=== PATIENT | female | born 1950 | race Caucasian/White ===

== ENCOUNTER 2017-12-24 10:48 | Inpatient (IN) ==
--- NOTE | 2017-12-24 11:37 | ED ---
HPI General Chief Complaint: Shortness of Breath/Dyspnea Stated Complaint: SOB Time Seen by Provider: 12/24/17 11:05 Source: patient Mode of arrival: EMS Limitations: physical limitation History of Present Illness Patient through very choppy speech pattern provided some information, in particular to the patient has been driving from [place] to [place] over the last 3 days, states that her shortness of breath has been worsening over the last 3 days as well. MD Complaint: shortness of breath Onset (ago): day(s) (3) Severity: severe Consistency/Duration: progressively worsening Relieving factors: oxygen and bronchodilators Exacerbating factors: exertion Known history of: COPD Associated symptoms: wheezing Treatment prior to arrival: oxygen, bronchodilator and other (EMS gave patient breathing treatments as well as Solu-Medrol prior to arrival) Related Data Home oxygen amount: other (Patient was also placed on a nonrebreather to improve the initial pulse ox in the 80s to mid 90s after placed on a nonrebreather) Allergies Allergy/AdvReac Type Severity Reaction Status Date / Time azithromycin [From Zithromax] AdvReac Hotflash Verified 12/24/17 11:07 Review of Systems Except as stated in HPI: all other systems reviewed are negative PMFSH History History 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 Medical 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 Medical History Anxiety (Acute) COPD (chronic obstructive pulmonary disease) (Acute) Leg edema (Acute) Social History Social History Substance History: No History of Abuse Smoking Status: Former smoker How Often Do You Have a Drink Containing Alcohol: Monthly or less Recent Travel in [facility] within the Last 8 Weeks: Yes Recent Out of Country Travel within the Last 8 Weeks: No Immunization History Tetanus Immunization: Unsure Hx Influenza Vaccine This Season: Yes Exam Narrative Exam Narrative: GENERAL: Obese female in moderate to severe respiratory distress speaking only single word dyspnea SKIN: Warm and dry. HEAD: Atraumatic. Normocephalic. EYES: Pupils equal and round. No scleral icterus. No injection or drainage. ENT: No nasal bleeding or discharge. Mucous membranes pink and moist. NECK: Trachea midline. No JVD. CARDIOVASCULAR: Regular rate and rhythm. no rubs or gallops RESPIRATORY: Intercostal and supra sternal accessory muscle use. Bilateral wheezing, decreased tidal volume bilaterally. GASTROINTESTINAL: Abdomen soft, non-tender, nondistended. No rebound or guarding MUSCULOSKELETAL: Extremities without clubbing, cyanosis, or edema. No obvious deformities. NEUROLOGICAL: Awake and alert. No obvious cranial nerve deficits. Motor grossly within normal limits. Five out of 5 muscle strength in the arms and legs. Normal speech. PSYCHIATRIC: Appropriate mood and affect; insight and judgment normal. Course Initial Documented Vital Signs Temperature 99 F 12/24/17 10:55 Pulse Rate 123 H 12/24/17 10:55 Respiratory Rate 51 H 12/24/17 10:55 Blood Pressure 181/109 H 12/24/17 10:55 Pulse Oximetry 96 12/24/17 10:55 Last Documented Vital Signs Temperature 99 F 12/24/17 10:55 Pulse Rate 123 H 12/24/17 11:41 Respiratory Rate 51 H 12/24/17 10:55 Blood Pressure 154/102 H 12/24/17 11:41 Pulse Oximetry 93 L 12/24/17 11:15 Critical Care Time Critical Care Time: Yes Total Critical Care Time: 60 Attestation: Aggregate critical care time was 60 minutes. Time to perform other separately billable procedures was not included in the critical care time. My time did not include minutes spent treating any other patients simultaneously or on activities that did not directly contribute to the patient's treatment. The services I provided to this patient were to treat and/or prevent clinically significant deterioration that could result in: [Respiratory failure, intubation, permanent disability or ] I provided critical care services requiring my management, as noted below: Chart data review, documentation time, medication orders and management, vital sign assessments/reviewing monitor data, ordering and reviewing lab tests, ordering and interpreting/reviewing x-rays and diagnostic studies, care of the patient and discussion of the patient with the admitting physicians. Medical Decision Making MDM Narrative Medical decision making narrative: CBC shows leukocytosis of 44,000, with 87% neutrophilia, no anemia no abnormal platelet count Coagulation profile is within normal limits ABG immediately after placing the patient on BiPAP essentially shows pH of 7.44 PaO2 of 71 PaCO2 of 33 and this was on BiPAP 12/+5/50% Patient has stage IV renal failure with a GFR of 15 creatinine of 3.06, normal beta natruretic peptide, normal liver function, normal potassium. Chest x-ray shows left basilar density as per radiology report VQ scan shows low probability pulmonary embolism Chest CT shows consolidation in the medial left lower lung as well as mildly prominent middle mediastinal lymph nodes with this combined findings my concern is of possible primary tuberculosis, so the patient should be tested additionally to rule out TB. The patient will be placed on a negative pressure room Differential Diagnosis Differential Diagnosis: Pneumonia versus pneumothorax versus pulmonary embolus versus COPD exacerbation versus hypoxemic respiratory failure Lab Data Lab results reviewed: Yes I reviewed the patient's lab results. Result diagrams: 12/24/17 11:18 12/24/17 11:18 Lab Results 12/24/17 12/24/17 12/24/17 Range/Units 11:18 11:18 11:18 WBC 44.1 H (4.0-11.0) th/mm3 RBC 5.81 H (4.00-5.30) mil/mm3 Hgb 15.9 H (11.6-15.3) gm/dL Hct 48.5 H (35.0-46.0) % MCV 83.4 (80.0-100.0) fL MCH 27.4 (27.0-34.0) pg MCHC 32.8 (32.0-36.0) % RDW 16.3 (11.6-17.2) % Plt Count 441 (150-450) th/mm3 MPV 9.7 (7.0-11.0) fL Prelim Diff (Auto) Slide review pending Neut % (Auto) 86.9 H (16.0-70.0) % Lymph % (Auto) 4.9 L (9.0-44.0) % [place] % (Auto) 7.7 (0.0-8.0) % Eos % (Auto) 0.3 (0.0-4.0) % Baso % (Auto) 0.2 (0.0-2.0) % Neut # (Auto) 38.4 H (1.8-7.7) th/mm3 Lymph # (Auto) 2.1 (1.0-4.8) th/mm3 [place] # (Auto) 3.4 H (0.0-0.9) th/mm3 Eos # (Auto) 0.1 (0.0-0.4) th/mm3 Baso # (Auto) 0.1 (0.0-0.2) th/mm3 WBC Differential Manual diff final Seg Neuts % (Manual) 78 H (16-70) % Band Neuts % (Manual) 14 H (0-6) % Lymphocytes % (Manual) 2 L (9-44) % Monocytes % (Manual) 4 (0-8) % Eosinophils % (Manual) 1 (0-4) % Metamyelocytes % (Man) 1 (0-1) % Abs Neuts (Manual) 41.0 H (1.8-7.7) th/mm3 Differential Comment . Platelet Estimate Normal (Normal) Platelet Morphology Normal (Normal) RBC Morphology Normal (Normal) PT 11.4 (9.8-11.6) sec INR 1.1 Ratio APTT 29.4 (24.3-30.1) sec Puncture Site Patient Temperature O2 Saturation (90-100) % ABG pH (7.380-7.420) ABG pCO2 (38-42) mmHg ABG pO2 (61-120) mmHg ABG HCO3 (22-26) mmol/L ABG O2 Content (12.0-20.0) Vol % ABG Base Excess (-2-2) mmol/L ABG Methemoglobin (0-2) % Chet Test Hemoglobin (12.0-16.0) G/DL Carboxyhemoglobin (0-4) % O2 Delivery Device Vent Setting Inspired O2 % Critical Value Sodium 136 (136-145) meq/L Potassium 3.6 (3.5-5.1) meq/L Chloride 99 (98-107) meq/L Carbon Dioxide 25.1 (21.0-32.0) meq/L Anion Gap 12 (5-15) meq/L BUN 51 H (7-18) mg/dL Creatinine 3.06 H (0.50-1.00) mg/dL Estimated GFR 15 L (>89) mL/min Random Glucose 98 (74-106) mg/dL Calcium 9.2 (8.5-10.1) mg/dL Total Bilirubin 1.4 H (0.2-1.0) mg/dL AST 41 H (15-37) U/L ALT 35 (10-53) U/L Alkaline Phosphatase 194 H (45-117) U/L Total Creatine Kinase 76 (26-192) U/L Troponin I Less than 0.02 L (0.02-0.05) ng/mL B-Natriuretic Peptide (0-100) pg/mL Total Protein 8.2 (6.4-8.2) g/dL Albumin 2.5 L (3.4-5.0) g/dL 12/24/17 12/24/17 Range/Units 11:18 11:29 WBC (4.0-11.0) th/mm3 RBC (4.00-5.30) mil/mm3 Hgb (11.6-15.3) gm/dL Hct (35.0-46.0) % MCV (80.0-100.0) fL MCH (27.0-34.0) pg MCHC (32.0-36.0) % RDW (11.6-17.2) % Plt Count (150-450) th/mm3 MPV (7.0-11.0) fL Prelim Diff (Auto) Neut % (Auto) (16.0-70.0) % Lymph % (Auto) (9.0-44.0) % [place] % (Auto) (0.0-8.0) % Eos % (Auto) (0.0-4.0) % Baso % (Auto) (0.0-2.0) % Neut # (Auto) (1.8-7.7) th/mm3 Lymph # (Auto) (1.0-4.8) th/mm3 [place] # (Auto) (0.0-0.9) th/mm3 Eos # (Auto) (0.0-0.4) th/mm3 Baso # (Auto) (0.0-0.2) th/mm3 WBC Differential Seg Neuts % (Manual) (16-70) % Band Neuts % (Manual) (0-6) % Lymphocytes % (Manual) (9-44) % Monocytes % (Manual) (0-8) % Eosinophils % (Manual) (0-4) % Metamyelocytes % (Man) (0-1) % Abs Neuts (Manual) (1.8-7.7) th/mm3 Differential Comment Platelet Estimate (Normal) Platelet Morphology (Normal) RBC Morphology (Normal) PT (9.8-11.6) sec INR Ratio APTT (24.3-30.1) sec Puncture Site Right radial Patient Temperature 98.6 O2 Saturation 92 (90-100) % ABG pH 7.44 H (7.380-7.420) ABG pCO2 33 L (38-42) mmHg ABG pO2 71 (61-120) mmHg ABG HCO3 22 (22-26) mmol/L ABG O2 Content 21.3 H (12.0-20.0) Vol % ABG Base Excess -1.8 (-2-2) mmol/L ABG Methemoglobin 0.5 (0-2) % Chet Test Present Hemoglobin 16.4 H (12.0-16.0) G/DL Carboxyhemoglobin 1.3 (0-4) % O2 Delivery Device Bipap Vent Setting 12/+5/50% Inspired O2 50 % Critical Value No Sodium (136-145) meq/L Potassium (3.5-5.1) meq/L Chloride (98-107) meq/L Carbon Dioxide (21.0-32.0) meq/L Anion Gap (5-15) meq/L BUN (7-18) mg/dL Creatinine (0.50-1.00) mg/dL Estimated GFR (>89) mL/min Random Glucose (74-106) mg/dL Calcium (8.5-10.1) mg/dL Total Bilirubin (0.2-1.0) mg/dL AST (15-37) U/L ALT (10-53) U/L Alkaline Phosphatase (45-117) U/L Total Creatine Kinase (26-192) U/L Troponin I (0.02-0.05) ng/mL B-Natriuretic Peptide 10 (0-100) pg/mL Total Protein (6.4-8.2) g/dL Albumin (3.4-5.0) g/dL Imaging Data Radiologist's impression: Chest X-Ray 12/24/17 11:10 CONCLUSION: Left basilar density could be atelectasis or infiltrate Chest CT 12/24/17 12:24 CONCLUSION: 1. Segmental consolidation medial left lower lung. 2. Mildly prominent middle mediastinal lymph nodes. 3. Upper lobe emphysema. 4. 2 cm left thyroid nodule. Pulmonary Perfusion Imaging 12/24/17 12:25 CONCLUSION: 1. Low probability pulmonary embolism. 2. Ventilatory abnormalities including central deposition and upper lobe emphysema. ECG Data EKG Prior to Arrival: No Attestation: I personally reviewed and interpreted this ECG as follows: Prior ECG tracings: not available for review Interpretation: Sinus tachycardia with 125 bpm, PVCs, no evidence of any ST elevation UT, there is some baseline motion artifact due to the patient's distress Discharge Plan Discharge Disposition Patient Disposition: 30 Still Patient Discharge Condition Condition: Fair Discharge Details Diagnosis: Acute exacerbation of chronic obstructive airways disease, Acute hypoxemic respiratory failure, Renal failure Physicians Team ED Provider: Marty Moon Primary Care Provider: NON STAFF,PROVIDER Attending Provider: Joe Alejandre Status ED Status: Admitted Patient
[2017-12-24 11:38] LABS: Baso # (Auto) 0.1 th/mm3 (0.0-0.2); Baso % (Auto) 0.2 % (0.0-2.0); Eos # (Auto) 0.1 th/mm3 (0.0-0.4); Eos % (Auto) 0.3 % (0.0-4.0); Hematocrit 48.5 % (35.0-46.0); Hemoglobin 15.9 gm/dL (11.6-15.3); Lymph # (Auto) 2.1 th/mm3 (1.0-4.8); Lymph % (Auto) 4.9 % (9.0-44.0); Mean Corpuscular HGB Conc 32.8 % (32.0-36.0); Mean Corpuscular Hemoglobin 27.4 pg (27.0-34.0); Mean Corpuscular Volume 83.4 fL (80.0-100.0); Mean Platelet Volume 9.7 fL (7.0-11.0); Mono # (Auto) 3.4 th/mm3 (0.0-0.9); Mono % (Auto) 7.7 % (0.0-8.0); Neut # (Auto) 38.4 th/mm3 (1.8-7.7); Neut % (Auto) 86.9 % (16.0-70.0); Platelet Count 441 th/mm3 (150-450); Red Blood Count 5.81 mil/mm3 (4.00-5.30); Red Cell Distribution Width 16.3 % (11.6-17.2); White Blood Count 44.1 th/mm3 (4.0-11.0)
--- NOTE | 2017-12-24 11:39 | XR ---
EXAM DATE: 12/24/2017 11:35 AM EDT AGE/SEX: 67 years / Female INDICATIONS: Shortness of breath. CLINICAL DATA: This is the patient's initial encounter. Patient reports that signs and symptoms have been present for 1 day and indicates a pain score of Nonresponsive. MEDICAL/SURGICAL HISTORY: Non-responsive. Patient too short of breath to get adequate history. On vent. Non-responsive. COMPARISON: No prior exams available for comparison. FINDINGS: A single AP view of the chest demonstrates left basilar density. Right lung clear. Heart normal in si ze The cardiomediastinal contours are unremarkable. Osseous structures are intact. CONCLUSION: Left basilar density could be atelectasis or infiltrate Electronically signed by: Roby Chiu MD 12/24/2017 11:38 AM EDT
[2017-12-24 11:45] LABS: ABG Base Excess -1.8 mmol/L (-2-2); ABG PCO2 33 mmHg (38-42); ABG PO2 71 mmHg (61-120)
[2017-12-24 11:51] LABS: Activated Partial Thrombo Time 29.4 sec (24.3-30.1); INR 1.1 Ratio; Prothrombin Time 11.4 sec (9.8-11.6)
[2017-12-24 12:05] LABS: Alanine Aminotransferase 35 U/L (10-53); Anion Gap 12 meq/L (5-15); Aspartate Aminotransferase 41 U/L (15-37); Blood Urea Nitrogen 51 mg/dL (7-18); Calcium 9.2 mg/dL (8.5-10.1); Carbon Dioxide 25.1 meq/L (21.0-32.0); Chloride 99 meq/L (98-107); Glomerular Filtration Rate 15 mL/min (>89); Glucose,Random 98 mg/dL (74-106); Potassium 3.6 meq/L (3.5-5.1); Sodium 136 meq/L (136-145)
[2017-12-24 12:13] LABS: Alkaline Phosphatase 194 U/L (45-117); Total Protein 8.2 g/dL (6.4-8.2)
[2017-12-24 12:21] LABS: Eosinophils 1 % (0-4); Lymphocytes 2 % (9-44); Metamyelocytes 1 % (0-1); Monocytes 4 % (0-8); RBC Morphology Normal (Normal)
[2017-12-24 12:22] LABS: Platelet Estimate Normal (Normal); Platelet Morphology Normal (Normal)
[2017-12-24 13:21] LABS: Albumin 2.5 g/dL (3.4-5.0); Creatine Kinase 76 U/L (26-192)
--- NOTE | 2017-12-24 14:26 | CT ---
EXAM DATE: 12/24/2017 2:10 PM EDT AGE/SEX: 67 years / Female INDICATIONS: Shortness of breath. CLINICAL DATA: This is the patient's initial encounter. Patient reports that signs and symptoms have been present for 1 day and indicates a pain score of 0/10. MEDICAL/SURGICAL HISTORY: Chronic obstructive pulmonary disease. None. RADIATION DOSE: 13.70 CTDI (mGy) COMPARISON: No prior exams available for comparison. TECHNIQUE: Multiple contiguous axial images were obtained through the chest without contrast. Image s were obtained in suspended respiration using multiple row detector helical technique. Using automa alesia exposure control and adjustment of the mA and/or kV according to patient size, radiation dose was kept as low as reasonably achievable to obtain optimal diagnostic quality images. DICOM format imag e data is available electronically for review and comparison. FINDINGS: Lungs: There is subsegmental consolidation in the medial left lower lung with air bronchograms and l eft lower lobe interstitial infiltrate. There is hyperaeration of the upper lungs characteristic of c entrilobular emphysema. No nodules or infiltrates seen in the right lung. Mediastinum: There are several mildly prominent middle mediastinal lymph nodes which measure 1 cm or less. The azygos node measures 1.7 cm. Mild coronary artery calcification. Pleurae: No evidence of focal thickening or pleural effusion. Axillae: Unremarkable. Bony Structures: Unremarkable. Miscellaneous: The visualized portion of both adrenal glands is normal in appearance. Diffuse fatty change the liver. Dominant nodule in the left lobe of the thyroid measuring 2.1 cm. CONCLUSION: 1. Segmental consolidation medial left lower lung. 2. Mildly prominent middle mediastinal lymph nodes. 3. Upper lobe emphysema. 4. 2 cm left thyroid nodule. Electronically signed by: Franky Hogan MD 12/24/2017 2:25 PM EDT
--- NOTE | 2017-12-24 14:55 | NM ---
EXAM DATE: 12/24/2017 2:44 PM EDT AGE/SEX: 67 years / Female INDICATIONS: Shortness of breath for three days. CLINICAL DATA: This is the patient's initial encounter. Patient reports that signs and symptoms have been present for 3 days and indicates a pain score of 0/10. MEDICAL/SURGICAL HISTORY: Chronic obstructive pulmonary disease. None. COMPARISON: [facility], CHEST 1V SINGLE AP, 12/24/2017. . No external comparison. DOSE: 0.94 mCi Tc99m DTPA aerosol 8.8 mCi Tc99m MAA IV TECHNIQUE: Following five minutes of tidal breathing of DTPA aerosol, planar images of the lungs wer e performed in eight projections. The patient was then injected with MAA, and eight-view perfusion s can was performed. FINDINGS: There is some aerosol delivery to the periphery of both lungs with a heterogeneous pattern of ventila tion. There is also moderate central deposition in the perihilar region. The perfusion scan demonstrates delivery of aerosol to the periphery of both lungs, but there is mild decreased uptake in the upper lobes characteristic of upper lobe emphysema. No segmental or subsegme ntal defects seen. CONCLUSION: 1. Low probability pulmonary embolism. 2. Ventilatory abnormalities including central deposition and upper lobe emphysema. Electronically signed by: Franky Hogan MD 12/24/2017 2:54 PM EDT
--- NOTE | 2017-12-24 15:20 | P.HPIM ---
History of Present Illness Service: [facility] Primary Care Physician: PROVIDER NON STAFF Chief Complaint: shortness of breath History of Present Illness: History somewhat limited due to shortness of breath on BIPAP Mrs. Leon is a 67 yo F with PMH COPD, HTN, renal disease, anxiety/depression who presents to [place] [facility] for complaints of shortness of breath and cough. Patient states that she has been feeling worsening shortness of breath and increasing sputum production for the past 2-3 days; she at first thought her symptoms would improve but they worsened so she sought evaluation. Patient reports wheezing; she denies associated fevers. Patient reports being diagnosed with COPD ~5 years prior; she currently uses 2L O2 at night and takes daily Advair. patient sees a Family Therapist in [place]. Patient has generally been doing ok in terms of her respiratory function; she last had pneumonia 06/2017. Patient states that she has not been drinking as much due to her shortness of breath and has been urinating less. She sees a Accounts Payable Clerk in [place] but denies any need for dialysis. Patient denies recent sick contacts. She denies recent exposure to incarcerated persons or recent immigrants; no concern for TB. Patient reports loose stools recently. No headaches, vision changes, extremity numbness/tingling, or other complaints. Interval: Patient hypoxic in ED in respiratory distress, tachycardic, and tachypneic. Initial pulse oximetry in mid 80's; due to continued distress patient placed on BIPAP. ABG performed on BIPAP with pH 7.44, CO2 33. Initial labs- leukocytosis; WBC 44K. Chemistry with Cr 3.06. CXR suggestive of L basilar infiltrate or atelectasis, CT imaging suggestive of segmented consolidation with lymphadenopathy. VQ not suggestive of PE. Patient admitted for treatment of respiratory distress/pneumonia; placed on TB precautions for CT imaging findings. Inpatient Certification: I certify that the inpatient services were ordered in accordance with Medicare regulations governing the order. This includes certification that hospital inpatient services are reasonable and necessary and in the case of services not specified as inpatient-only under 42 CFR 419.22(n), that they are appropriately provided as inpatient services in accordance to with the 2-midnight benchmark under 43 CFR 412.3(e) Review of Systems All other systems reviewed negative except as stated in HPI Constitutional: Reports fatigue, Denies chills, Denies fever(s) Eyes: Denies blurry vision, Denies discharge Ears, Nose, Mouth, and Throat: Reports dry mouth, Denies nasal congestion Cardiovascular: Reports fast heart rate, Denies chest pain Respiratory: Reports shortness of breath, Reports wheezing Gastrointestinal: Reports change in bowel habits (loose stools), Denies abdominal pain Genitourinary: Reports other (decreased urination), Denies painful urination Musculoskeletal: Denies joint pain, Denies muscle cramps PMFSH - History History 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, 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 - Medical / Surgical Hx Neg / Unobtainable Surgical History: Unable to Obtain - Medical History Medical History: Medical History (Last Reviewed 12/24/17 @ 11:33 by Marty Moon) Anxiety COPD (chronic obstructive pulmonary disease) Leg edema - Tobacco History Smoking Status: Former smoker - Alcohol History How Often Do You Have a Drink Containing Alcohol: Monthly or less - Substance Use History Substance History: No History of Abuse - Travel History Recent Travel in the [place] Within the Last 8 Weeks: Yes Recent Travel Out of the Country Within the Last 8 Weeks: No - Immunization History Tetanus Immunization: Unsure Hx Influenza Vaccine This Season: Yes Medications and Allergies Allergies Allergy/AdvReac Type Severity Reaction Status Date / Time azithromycin [From Zithromax] AdvReac Hotflash Verified 12/24/17 11:07 Home Medications Medication Instructions Recorded Confirmed Type atenolol 12/24/17 History bupropion HCl 12/24/17 12/24/17 History fluticasone-salmeterol [Advair 12/24/17 12/24/17 History Diskus] Exam Vital signs: Vital Signs 12/24/17 10:55 12/24/17 11:15 12/24/17 11:41 Temperature 99 F Pulse Rate 123 H 123 H Respiratory Rate 51 H Blood Pressure 181/109 H 154/102 H Pulse Oximetry 96 93 L 12/24/17 15:07 Temperature Pulse Rate 100 H Respiratory Rate 20 Blood Pressure 119/58 L Pulse Oximetry 97 Intake & Output 12/23/17 12/24/17 12/24/17 18:59 06:59 18:59 Weight 92.986 kg Narrative: GENERAL: Patient in respiratory distress and seemingly anxious on BIPAP SKIN: Warm and dry, no rashes appreciated EYES: No scleral icterus, injection, or drainage. HENT: Mouth: No lesions appreciated. NECK: No appreciated lymphadenopathy/thyromegaly CARDIOVASCULAR: Tachycardic, regular rhythm without murmurs. RESPIRATORY: Tachypneic, decreased breath sounds bilaterally; no focal congestion GASTROINTESTINAL: Abdomen soft, nondistended, nontender. Bowel sounds normal. MUSCULOSKELETAL: No lower extremity edema or calf asymmetry. NEURO/PSYCH: Awake, alert, and oriented. Anxious. Patient frustrated with BIPAP. Cranial nerves grossly normal. Grossly normal peripheral motor and sensory function Results - Labs CBC & Chem 7: 12/24/17 11:18 12/24/17 11:18 Labs: Short CBC 12/24/17 Range/Units 11:18 WBC 44.1 H (4.0-11.0) th/mm3 Hgb 15.9 H (11.6-15.3) gm/dL Hct 48.5 H (35.0-46.0) % Plt Count 441 (150-450) th/mm3 BMP 12/24/17 11:18 Sodium 136 Potassium 3.6 Chloride 99 Carbon Dioxide 25.1 BUN 51 H Creatinine 3.06 H Calcium 9.2 Cardiac Enzymes 12/24/17 Range/Units 11:18 Total Creatine Kinase 76 (26-192) U/L Troponin I Less than 0.02 L (0.02-0.05) ng/mL Liver Function 12/24/17 Range/Units 11:18 Total Bilirubin 1.4 H (0.2-1.0) mg/dL AST 41 H (15-37) U/L ALT 35 (10-53) U/L Alkaline Phosphatase 194 H (45-117) U/L Albumin 2.5 L (3.4-5.0) g/dL - Imaging Impressions Chest X-Ray 12/24/17 11:10 CONCLUSION: Left basilar density could be atelectasis or infiltrate Chest CT 12/24/17 12:24 CONCLUSION: 1. Segmental consolidation medial left lower lung. 2. Mildly prominent middle mediastinal lymph nodes. 3. Upper lobe emphysema. 4. 2 cm left thyroid nodule. Pulmonary Perfusion Imaging 12/24/17 12:25 CONCLUSION: 1. Low probability pulmonary embolism. 2. Ventilatory abnormalities including central deposition and upper lobe emphysema. Caprini VTE Risk Assessment Caprini VTE Risk Assessment: Moderate/High Risk (score >= 2) Caprini Risk Assessment Model: Point Value = 1 Point Value = 2 Point Value = 3 Point Value = 5 Age 41-60 Minor surgery BMI > 25 kg/m2 Swollen legs Varicose veins or History of unexplained or recurrent spontaneous Oral contraceptives or hormone replacement Sepsis (< 1 month) Serious lung disease, including pneumonia (< 1 month) Abnormal pulmonary function Acute myocardial infarction Congestive heart failure (< 1 month) History of inflammatory bowel disease Medical patient at bed rest Age 61-74 Arthroscopic surgery Major open surgery (> 45 min) Laparoscopic surgery (> 45 min) Malignancy Confined to bed (> 72 hours) Immobilizing plaster cast Central venous access Age >= 75 History of VTE Family history of VTE Factor V Leiden Prothrombin [id number] Lupus anticoagulant Anticardiolipin antibodies Elevated serum homocysteine Heparin-induced thrombocytopenia Other congenital or acquired thrombophilia Stroke (< 1 month) Elective arthroplasty Hip, pelvis, or leg fracture Acute spinal cord injury (< 1 month) Prophylaxis Regimen: Total Risk Factor Score Risk Level Prophylaxis Regimen 0-1 Low Early ambulation 2 Moderate Order ONE of the following: *Sequential Compression Device (SCD) *Heparin 5000 units SQ BID 3-4 Higher Order ONE of the following medications: *Heparin 5000 units SQ TID *Enoxaparin/Lovenox 40 mg SQ daily (WT < 150 kg, CrCl > 30 mL/min) *Enoxaparin/Lovenox 30 mg SQ daily (WT < 150 kg, CrCl > 10-29 mL/min) *Enoxaparin/Lovenox 30 mg SQ BID (WT < 150 kg, CrCl > 30 mL/min) AND/OR *Sequential Compression Device (SCD) 5 or more Highest Order ONE of the following medications: *Heparin 5000 units SQ TID (Preferred with Epidurals) *Enoxaparin/Lovenox 40 mg SQ daily (WT < 150 kg, CrCl > 30 mL/min) *Enoxaparin/Lovenox 30 mg SQ daily (WT < 150 kg, CrCl > 10-29 mL/min) *Enoxaparin/Lovenox 30 mg SQ BID (WT < 150 kg, CrCl > 30 mL/min) AND *Sequential Compression Device (SCD) Assessment and Plan - Plan Respiratory distress/pneumonia Impression: Shortness of breath in association with infiltrate on imaging. PMH COPD CXR- L basilar density could be atelectasis or infiltrate Chest CT- Segmental consolidation medial left lower lung, Mildly prominent middle mediastinal lymph nodes, upper lobe emphysema, 2cm left thyroid nodule VQ- low probability. Abnormalities including emphysema and central deposition CBC- WBC 44.1K, neutrophil predominant. ABG performed on BIPAP with pH 7.44, CO2 33. -Continue to monitor O2/VS -BIPAP vs NC O2 based on respiration -Treat for CAP -given Azithromycin/Rocephin x1 in ED -given Levaquin x1; will await renal function -Will treat for COPD exacerbation -s/p Solumedrol/bronchodilators in ED -Continue Solumedrol 60mg IV q6hrs -Continue Duonebs scheduled, PRN Albuterol -Will check urine Legionella/strep pneumo/sputum culture -Will rule out TB for CT findings based on discussion w/ ED provider -MTB RIF pending -Pulmonology consulted (need for home O2, needed BIPAP on admission, patient does not have Pulm f/u in [facility]) Cr elevation Impression: 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 Unknown baseline Cr; presume some PARTH with recent illness -Will give IV NS bolus x1 -Will continue maintenance NS -Will trend Cr HTN Impression: Mild hypertension in ED -Will give PRN hydralazine due to renal function Anxiety -Will continue home Wellbutrin -Will give PRN Benzo when stable respiratory status DVT PPX -BID heparin Code Status: Full code Addendum seen by pulmonology, weaned to NC O2. Will continue Rocephin/Azithromycin, Symbicort added
[2017-12-24] MEDS ORDERED: Acetaminophen 325 MG Tablet PO PRN (15:58)
[2017-12-24] MEDS ORDERED: Sod Chloride 0.9% Inj 1,000 ML IV.SIG ONE (16:07)
[2017-12-24] MEDS: Sod Chloride 0.9% Inj 1,000 ML IV.CONT SCH ×2 (18:36→23:13)
--- NOTE | 2017-12-24 18:53 | MB ---
cc: Nell Sood MD DATE: 12/24/2017 REASON FOR CONSULTATION: Respiratory failure and COPD. HISTORY OF PRESENT ILLNESS: This is a 67-year-old white female with a past history of COPD, chronic bronchitis and emphysema, was admitted via the emergency room with severe respiratory distress and respiratory failure. The patient was hypoxic and she had to be placed on a BiPAP mask upon admission. Her initial blood gases demonstrated a pH of 7.4, pCO2 of 33, pO2 of 71 on BiPAP at 50% FiO2. She received IV Solu-Medrol and IV antibiotics including Levaquin, and she is doing better and wants the mask off. Denies any chest pain, but does have a cough. She complains of leg swelling and denies any nausea or vomiting, but she has some anxiety. PAST MEDICAL HISTORY: Included a history of COPD. Other details not immediately available. HABITS: The patient smoked 1 pack per day for over 35 years and no significant alcohol use. FAMILY HISTORY: Noncontributory. ALLERGIES: NO SIGNIFICANT DRUG ALLERGIES. STATES SHE GETS HOT FLASHES FROM ZITHROMAX. REVIEW OF SYSTEMS: The patient has been overweight. She has cough, wheezing, shortness of breath, epigastric distress, and reflux and denies urinary symptoms. No leg or calf muscle pain. She has some joint pains of her extremities and leg swelling. The other system review is negative. PHYSICAL EXAMINATION: GENERAL: This is a moderately obese, elderly lady, anxious and dyspneic, on BiPAP. VITAL SIGNS: Blood pressure 140/70, pulse 96, respirations 22, temperature 98.2. HEENT: Head normocephalic. Pupils are reactive. Tongue is moist. Nasal mucosa edematous. Ears no inflammation. Throat was clear. NECK: No bruits or thyroid enlargement or lymphadenopathy. CHEST: Equal movements with distant breath sounds, expiratory wheezes scattered bilaterally, prolonged expirations. HEART: The heart sounds are irregular, S1 and S2, with no murmur, no S3 gallop. ABDOMEN: Soft, obese without masses. No organomegaly or tenderness. Bowel sounds are active. EXTREMITIES: Mild peripheral edema with varicosities. Diminished peripheral pulses. Reflexes are 1+ with no gross motor deficits. NEUROLOGIC: Cranial nerves are grossly intact. SKIN: No lesions. IMPRESSION: 1. Acute respiratory failure. 2. Chronic obstructive pulmonary disease with emphysema and acute exacerbation. 3. Obstructive sleep apnea syndrome. 4. Hypertension. PLAN: The patient has been placed on nasal cannula at 4 liters. We will wean her down to keep saturations over 92. Continue with antibiotic coverage including Zithromax 500 mg IV daily and add Rocephin 1 gram IV daily. Nebulized DuoNeb solution added q.i.d. and p.r.n. and Symbicort 160/4.5 mcg 2 puffs twice a day. The patient will have a blood gas repeated and we will also get a pulmonary function study when she is clinically stable. Repeat chest x-ray is pending. Thank you, Dr. Alejandre, for this consultation. Nell Sood MD VJD/RENETTA , 06:26 PM , 06:52 PM
[2017-12-24 23:03] LABS: Calcium 8.6 mg/dL (8.5-10.1); Carbon Dioxide 20.7 meq/L (21.0-32.0); Potassium 3.7 meq/L (3.5-5.1)
[2017-12-24] MEDS: Senna/Docusate Sodium 8.6/50 MG Tablet PO SCH (23:09)
[2017-12-24] MEDS: Heparin - SQ 10,000 UNITS/ML Vial SQ SCH (23:10)
[2017-12-24] MEDS: MethylPREDNISolone Sod Succinate Inj 125 MG/2 ML Vial IV.PUSH SCH (23:12)
[2017-12-25] MEDS: LORazepam 0.5 MG Tablet PO PRN (02:51)
[2017-12-25 06:03] LABS: Baso % (Auto) 0.2 % (0.0-2.0); Eos % (Auto) 0.1 % (0.0-4.0); Hematocrit 40.8 % (35.0-46.0); Hemoglobin 13.5 gm/dL (11.6-15.3); Lymph # (Auto) 0.8 th/mm3 (1.0-4.8); Lymph % (Auto) 3.1 % (9.0-44.0); Mean Corpuscular Hemoglobin 27.6 pg (27.0-34.0); Mean Corpuscular Volume 83.6 fL (80.0-100.0); Mean Platelet Volume 9.3 fL (7.0-11.0); Mono # (Auto) 0.6 th/mm3 (0.0-0.9); Mono % (Auto) 2.4 % (0.0-8.0); Neut # (Auto) 24.7 th/mm3 (1.8-7.7); Neut % (Auto) 94.2 % (16.0-70.0); Platelet Count 339 th/mm3 (150-450); Red Blood Count 4.88 mil/mm3 (4.00-5.30); Red Cell Distribution Width 16.3 % (11.6-17.2); White Blood Count 26.2 th/mm3 (4.0-11.0)
[2017-12-25 06:26] LABS: Albumin 1.9 g/dL (3.4-5.0); Anion Gap 14 meq/L (5-15); Aspartate Aminotransferase 42 U/L (15-37); Blood Urea Nitrogen 40 mg/dL (7-18); Calcium 8.2 mg/dL (8.5-10.1); Carbon Dioxide 20.5 meq/L (21.0-32.0); Chloride 108 meq/L (98-107); Glomerular Filtration Rate 30 mL/min (>89); Glucose,Random 125 mg/dL (74-106); Potassium 3.4 meq/L (3.5-5.1); Sodium 142 meq/L (136-145)
[2017-12-25 06:29] LABS: Alanine Aminotransferase 36 U/L (10-53); Alkaline Phosphatase 150 U/L (45-117); Total Protein 6.7 g/dL (6.4-8.2)
[2017-12-25] MEDS: MethylPREDNISolone Sod Succinate Inj 125 MG/2 ML Vial IV.PUSH SCH ×4 (06:38→21:26)
[2017-12-25] MEDS: Heparin - SQ 10,000 UNITS/ML Vial SQ SCH ×3 (07:20→21:25)
[2017-12-25] MEDS: buPROPion 150 MG 12 HR Tablet PO SCH ×2 (08:38→21:26)
[2017-12-25] MEDS: Senna/Docusate Sodium 8.6/50 MG Tablet PO SCH ×2 (08:41→21:26)
[2017-12-25] MEDS: hydrALAZINE 10 MG Tablet PO PRN ×2 (08:44→21:25)
--- NOTE | 2017-12-25 09:19 | P.PN ---
Physical Exam Vital signs: Vital Signs 12/24/17 10:55 12/24/17 11:15 12/24/17 11:41 Temperature 99 F Pulse Rate 123 H 123 H Respiratory Rate 51 H Blood Pressure 181/109 H 154/102 H Pulse Oximetry 96 93 L 12/24/17 15:07 12/24/17 18:19 12/24/17 18:30 Temperature Pulse Rate 100 H 104 H 110 H Respiratory Rate 20 28 H 18 Blood Pressure 119/58 L 131/75 Pulse Oximetry 97 93 L 12/24/17 19:15 12/24/17 20:00 12/24/17 20:51 Temperature 96.7 F L Pulse Rate 108 H 94 H 95 H Respiratory Rate 25 H 20 16 Blood Pressure 151/94 H 120/81 Pulse Oximetry 93 L 95 94 L 12/24/17 21:00 12/24/17 22:00 12/24/17 23:00 Temperature Pulse Rate 90 90 96 H Respiratory Rate Blood Pressure Pulse Oximetry 12/24/17 23:39 12/25/17 00:00 12/25/17 01:00 Temperature 96.7 F L Pulse Rate 98 H 98 H 94 H Respiratory Rate 20 20 Blood Pressure 127/80 Pulse Oximetry 93 L 12/25/17 02:00 12/25/17 03:00 12/25/17 04:00 Temperature 96.7 F L Pulse Rate 96 H 116 H 90 Respiratory Rate 16 Blood Pressure 118/78 Pulse Oximetry 94 L 12/25/17 04:19 12/25/17 05:00 12/25/17 06:00 Temperature Pulse Rate 92 H 92 H 90 Respiratory Rate 16 Blood Pressure Pulse Oximetry 12/25/17 07:23 12/25/17 08:00 12/25/17 08:27 Temperature 97 F L Pulse Rate 93 H 109 H 88 Respiratory Rate 22 18 Blood Pressure 184/116 H Pulse Oximetry 93 L 92 L Intake & Output 12/24/17 12/25/17 12/25/17 18:59 06:59 18:59 Intake Total 1100 / 1100 1730 / 1730 Output Total 500 / 500 Balance 1100 / 1100 1230 / 1230 Weight 92.986 kg 93.4 kg Intake: IV 1100 / 1100 1250 / 1250 NS Inj 1,000 ML @ 150 mls/hr IV 1000 / 1000 .CONT .[id number] [facility] Rx#:[id number] NS Inj 1,000 ML @ Wide Open IV. 1000 / 1000 SIG BOLUS ONE Rx#:[id number] Rocephin Inj 1,000 MG In NS Inj 100 / 100 100 / 100 100 ML @ 200 mls/hr IV.SIG Q24H [facility] Rx#:[id number] Oral 480 / 480 Output: Urine 500 / 500 Other: Date of Last Bowel Movement 12/23/17 Narrative: Subjective Coughing bloody sputum in the morning. With sob speaking in small sentences. No chest pain Feels lightheaded She is very anxious and says she gets more sob Physical exam GENERAL: Pleasant 67 yo F, well nourished well developed patient speaking in small sentences, with sob, anxious. CARDIOVASCULAR: Tachycardic, regular rhythm without murmurs. RESPIRATORY: Tachypneic, decreased breath sounds bilaterally. Bibasilar crackles. GASTROINTESTINAL: Abdomen soft, nondistended, nontender. Bowel sounds normal. MUSCULOSKELETAL: BL lower extremity edema. NEURO/PSYCH: Awake, alert, and oriented. Anxious. Patient frustrated with BIPAP. Cranial nerves grossly normal. Grossly normal peripheral motor and sensory function Assessment and Plan Respiratory distress/pneumonia Impression: Shortness of breath in association with infiltrate on imaging. PMH COPD CXR- L basilar density could be atelectasis or infiltrate Chest CT- Segmental consolidation medial left lower lung, Mildly prominent middle mediastinal lymph nodes, upper lobe emphysema, 2cm left thyroid nodule VQ- low probability. Abnormalities including emphysema and central deposition CBC- WBC 44.1K, neutrophil predominant. ABG performed on BIPAP with pH 7.44, CO2 33. -Continue to monitor O2/VS -BIPAP vs NC O2 based on respiration -Treat for CAP -given Azithromycin/Rocephin x1 in ED -given Levaquin x1; will await renal function -Will treat for COPD exacerbation -s/p Solumedrol/bronchodilators in ED -Continue Solumedrol 60mg IV q6hrs -Continue Duonebs scheduled, PRN Albuterol -Will check urine Legionella/strep pneumo/sputum culture -Will rule out TB for CT findings based on discussion w/ ED provider -MTB RIF pending -Pulmonology consulted (need for home O2, needed BIPAP on admission, patient does not have Pulm f/u in [facility]) - Add IS. 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 Unknown baseline Cr; presume some PARTH with recent illness -Will give IV NS bolus x1 DC NS as patient with LE edema. Now with fluid overload. Give one dose of lasix -Will trend Cr HTN Impression: Mild hypertension in ED -Will give PRN hydralazine due to renal function Anxiety -Will continue home Wellbutrin - Start xanax prn DVT PPX -BID heparin Code Status: Full code seen by pulmonology, weaned to NC O2. Will continue Rocephin/Azithromycin, Symbicort added Add also IS and EZPAP Results - Labs CBC & Chem 7: 12/25/17 05:20 12/25/17 05:20 Laboratory Results - last 24 hr 12/24/17 12/24/17 12/24/17 11:18 11:18 11:18 WBC 44.1 H RBC 5.81 H Hgb 15.9 H Hct 48.5 H MCV 83.4 MCH 27.4 MCHC 32.8 RDW 16.3 Plt Count 441 MPV 9.7 Prelim Diff (Auto) Slide review pending Neut % (Auto) 86.9 H Lymph % (Auto) 4.9 L [place] % (Auto) 7.7 Eos % (Auto) 0.3 Baso % (Auto) 0.2 Neut # (Auto) 38.4 H Lymph # (Auto) 2.1 [place] # (Auto) 3.4 H Eos # (Auto) 0.1 Baso # (Auto) 0.1 WBC Differential Manual diff final Seg Neuts % (Manual) 78 H Band Neuts % (Manual) 14 H Lymphocytes % (Manual) 2 L Monocytes % (Manual) 4 Eosinophils % (Manual) 1 Metamyelocytes % (Man) 1 Abs Neuts (Manual) 41.0 H Differential Comment . Platelet Estimate Normal Platelet Morphology Normal RBC Morphology Normal PT 11.4 INR 1.1 APTT 29.4 Puncture Site Patient Temperature O2 Saturation ABG pH ABG pCO2 ABG pO2 ABG HCO3 ABG O2 Content ABG Base Excess ABG Methemoglobin Chet Test Hemoglobin Carboxyhemoglobin O2 Delivery Device Vent Setting Inspired O2 Critical Value Sodium 136 Potassium 3.6 Chloride 99 Carbon Dioxide 25.1 Anion Gap 12 BUN 51 H Creatinine 3.06 H Estimated GFR 15 L Random Glucose 98 Lactic Acid Calcium 9.2 Total Bilirubin 1.4 H AST 41 H ALT 35 Alkaline Phosphatase 194 H Total Creatine Kinase 76 Troponin I Less than 0.02 L B-Natriuretic Peptide Total Protein 8.2 Albumin 2.5 L M.tuberculosis DNA (PCR) 12/24/17 12/24/17 12/24/17 11:18 11:29 16:15 WBC RBC Hgb Hct MCV MCH MCHC RDW Plt Count MPV Prelim Diff (Auto) Neut % (Auto) Lymph % (Auto) [place] % (Auto) Eos % (Auto) Baso % (Auto) Neut # (Auto) Lymph # (Auto) [place] # (Auto) Eos # (Auto) Baso # (Auto) WBC Differential Seg Neuts % (Manual) Band Neuts % (Manual) Lymphocytes % (Manual) Monocytes % (Manual) Eosinophils % (Manual) Metamyelocytes % (Man) Abs Neuts (Manual) Differential Comment Platelet Estimate Platelet Morphology RBC Morphology PT INR APTT Puncture Site Right radial Patient Temperature 98.6 O2 Saturation 92 ABG pH 7.44 H ABG pCO2 33 L ABG pO2 71 ABG HCO3 22 ABG O2 Content 21.3 H ABG Base Excess -1.8 ABG Methemoglobin 0.5 Chet Test Present Hemoglobin 16.4 H Carboxyhemoglobin 1.3 O2 Delivery Device Bipap Vent Setting 12/+5/50% Inspired O2 50 Critical Value No Sodium Potassium Chloride Carbon Dioxide Anion Gap BUN Creatinine Estimated GFR Random Glucose Lactic Acid Calcium Total Bilirubin AST ALT Alkaline Phosphatase Total Creatine Kinase Troponin I B-Natriuretic Peptide 10 Total Protein Albumin M.tuberculosis DNA (PCR) Not detected 12/24/17 12/24/17 12/25/17 17:04 22:18 05:20 WBC 26.2 H RBC 4.88 Hgb 13.5 D Hct 40.8 MCV 83.6 MCH 27.6 MCHC 33.0 RDW 16.3 Plt Count 339 MPV 9.3 Prelim Diff (Auto) Neut % (Auto) 94.2 H Lymph % (Auto) 3.1 L [place] % (Auto) 2.4 Eos % (Auto) 0.1 Baso % (Auto) 0.2 Neut # (Auto) 24.7 H Lymph # (Auto) 0.8 L [place] # (Auto) 0.6 Eos # (Auto) 0.0 Baso # (Auto) 0.0 WBC Differential . Seg Neuts % (Manual) Band Neuts % (Manual) Lymphocytes % (Manual) Monocytes % (Manual) Eosinophils % (Manual) Metamyelocytes % (Man) Abs Neuts (Manual) Differential Comment Auto diff final Platelet Estimate Platelet Morphology RBC Morphology PT INR APTT Puncture Site Patient Temperature O2 Saturation ABG pH ABG pCO2 ABG pO2 ABG HCO3 ABG O2 Content ABG Base Excess ABG Methemoglobin Chet Test Hemoglobin Carboxyhemoglobin O2 Delivery Device Vent Setting Inspired O2 Critical Value Sodium 140 Potassium 3.7 Chloride 106 Carbon Dioxide 20.7 L Anion Gap 13 BUN 44 H Creatinine 2.15 H Estimated GFR 23 L Random Glucose 118 H Lactic Acid 1.2 Calcium 8.6 Total Bilirubin AST ALT Alkaline Phosphatase Total Creatine Kinase Troponin I B-Natriuretic Peptide Total Protein Albumin M.tuberculosis DNA (PCR) 12/25/17 05:20 WBC RBC Hgb Hct MCV MCH MCHC RDW Plt Count MPV Prelim Diff (Auto) Neut % (Auto) Lymph % (Auto) [place] % (Auto) Eos % (Auto) Baso % (Auto) Neut # (Auto) Lymph # (Auto) [place] # (Auto) Eos # (Auto) Baso # (Auto) WBC Differential Seg Neuts % (Manual) Band Neuts % (Manual) Lymphocytes % (Manual) Monocytes % (Manual) Eosinophils % (Manual) Metamyelocytes % (Man) Abs Neuts (Manual) Differential Comment Platelet Estimate Platelet Morphology RBC Morphology PT INR APTT Puncture Site Patient Temperature O2 Saturation ABG pH ABG pCO2 ABG pO2 ABG HCO3 ABG O2 Content ABG Base Excess ABG Methemoglobin Chet Test Hemoglobin Carboxyhemoglobin O2 Delivery Device Vent Setting Inspired O2 Critical Value Sodium 142 Potassium 3.4 L Chloride 108 H Carbon Dioxide 20.5 L Anion Gap 14 BUN 40 H Creatinine 1.71 H Estimated GFR 30 L Random Glucose 125 H Lactic Acid Calcium 8.2 L Total Bilirubin 0.4 AST 42 H ALT 36 Alkaline Phosphatase 150 H Total Creatine Kinase Troponin I B-Natriuretic Peptide Total Protein 6.7 D Albumin 1.9 L D M.tuberculosis DNA (PCR) Microbiology 12/24/17 19:00 Urine - Clean Catch Urine Streptococcus pneumoniae Antigen ( M - Final Presumptive negative for streptococcus pneumoniae antigen, suggesting no current or recent infection. Infection due to Streptococcus pneumoniae cannot be ruled out since the antigen present in the sample may be below the detection limit of the test. 07/21/18 19:00 Urine - Clean Catch Urine Legionella Antigen - Final Presumptive negative for Legionella pneumophila serogroup 1 antigen in urine, suggesting no recent or recurrent infection. Infection due to Legionella cannot be ruled out since other serogroups and species may cause disease, antigen may not be present in urine in early infection, and the level of antigen present in the urine may be below the detection limit of the test. - Imaging Impressions Chest X-Ray 12/24/17 11:10 CONCLUSION: Left basilar density could be atelectasis or infiltrate Chest CT 12/24/17 12:24 CONCLUSION: 1. Segmental consolidation medial left lower lung. 2. Mildly prominent middle mediastinal lymph nodes. 3. Upper lobe emphysema. 4. 2 cm left thyroid nodule. Pulmonary Perfusion Imaging 12/24/17 12:25 CONCLUSION: 1. Low probability pulmonary embolism. 2. Ventilatory abnormalities including central deposition and upper lobe emphysema.
[2017-12-25] MEDS: Sod Chloride 0.9% Inj 1,000 ML IV.CONT SCH ×2 (10:54→12:23)
[2017-12-25] MEDS: Budesonide-Formoterol 160/4.5 MCG 6 GM Inhaler INH SCH ×3 (12:22→21:26)
[2017-12-25] MEDS ORDERED: ALPRAZolam 0.25 MG Tablet PO PRN (14:08)
[2017-12-25] MEDS ORDERED: Magnesium Oxide 400 MG Tablet PO ONE (14:35)
--- NOTE | 2017-12-25 15:24 | ECG ---
Date Performed: 12/24/2017 Time Performed: 11:04:55 PTAGE: 67 years EKG: SINUS TACHYCARDIA WITH OCCASIONAL VENTRICULAR PREMATURE COMPLEXES ABNORMAL RHYTHM ECG NO PREVIOUS TRACING DOCTOR: Olegario Albert Interpretating Date/Time 12/25/2017 15:22:42
--- NOTE | 2017-12-25 17:20 | P.PN ---
Subjective Interval history: She is better today. Ono2 3 L. Cannot use BiPAP. Output was OK. On IV Rocephin. for left lung Pneumonia Physical Exam Vital signs: Vital Signs 12/24/17 18:19 12/24/17 18:30 12/24/17 19:15 Temperature Pulse Rate 104 H 110 H 108 H Respiratory Rate 28 H 18 25 H Blood Pressure 131/75 151/94 H Pulse Oximetry 93 L 93 L 12/24/17 20:00 12/24/17 20:51 12/24/17 21:00 Temperature 96.7 F L Pulse Rate 94 H 95 H 90 Respiratory Rate 20 16 Blood Pressure 120/81 Pulse Oximetry 95 94 L 12/24/17 22:00 12/24/17 23:00 12/24/17 23:39 Temperature Pulse Rate 90 96 H 98 H Respiratory Rate 20 Blood Pressure Pulse Oximetry 12/25/17 00:00 12/25/17 01:00 12/25/17 02:00 Temperature 96.7 F L Pulse Rate 98 H 94 H 96 H Respiratory Rate 20 Blood Pressure 127/80 Pulse Oximetry 93 L 12/25/17 03:00 12/25/17 04:00 12/25/17 04:19 Temperature 96.7 F L Pulse Rate 116 H 90 92 H Respiratory Rate 16 16 Blood Pressure 118/78 Pulse Oximetry 94 L 12/25/17 05:00 12/25/17 06:00 12/25/17 07:23 Temperature Pulse Rate 92 H 90 93 H Respiratory Rate Blood Pressure Pulse Oximetry 12/25/17 08:00 12/25/17 08:27 12/25/17 09:00 Temperature 97 F L Pulse Rate 104 H 88 104 H Respiratory Rate 22 18 Blood Pressure 184/116 H Pulse Oximetry 93 L 92 L 12/25/17 10:00 12/25/17 11:00 12/25/17 12:00 Temperature 96.8 F L Pulse Rate 110 H 108 H 112 H Respiratory Rate 20 Blood Pressure 134/97 H Pulse Oximetry 92 L 12/25/17 12:56 12/25/17 13:00 12/25/17 14:00 Temperature Pulse Rate 111 H 110 H 106 H Respiratory Rate 18 Blood Pressure Pulse Oximetry 12/25/17 15:00 12/25/17 16:00 12/25/17 16:07 Temperature 97 F L Pulse Rate 110 H 102 H 110 H Respiratory Rate 20 19 Blood Pressure 146/94 H Pulse Oximetry 92 L 12/25/17 17:00 Temperature Pulse Rate 114 H Respiratory Rate Blood Pressure Pulse Oximetry Intake & Output 12/24/17 12/25/17 12/25/17 18:59 06:59 18:59 Intake Total 1100 / 1100 1730 / 1730 1000 / 1000 Output Total 500 / 500 Balance 1100 / 1100 1230 / 1230 1000 / 1000 Weight 92.986 kg 93.4 kg Intake: IV 1100 / 1100 1250 / 1250 1000 / 1000 NS Inj 1,000 ML @ 150 mls/hr IV 1000 / 1000 1000 / 1000 .CONT .Q6H40M KRISSY Rx#:[id number] NS Inj 1,000 ML @ Wide Open IV. 1000 / 1000 SIG BOLUS ONE Rx#:[id number] Rocephin Inj 1,000 MG In NS Inj 100 / 100 100 / 100 100 ML @ 200 mls/hr IV.SIG Q24H KRISSY Rx#:[id number] Oral 480 / 480 Output: Urine 500 / 500 Other: Date of Last Bowel Movement 12/23/17 Narrative: Subjective Coughing bloody sputum in the morning. With sob while speaking No chest pain She is very anxious and says she gets more sob Physical exam GENERAL: Pleasant 67 yo F, Obese patient sob, anxious. Throat clear. CARDIOVASCULAR: Tachycardic, regular rhythm without murmurs. RESPIRATORY: Tachypneic, decreased breath sounds bilaterally. Bibasilar crackles. Occ wheeze GASTROINTESTINAL: Abdomen soft, nondistended, nontender. Bowel sounds normal. MUSCULOSKELETAL: BL lower extremity edema. NEURO/PSYCH: Awake, alert, and oriented. Anxious. Cranial nerves grossly normal. Grossly normal peripheral motor and sensory function Results - Labs CBC & Chem 7: 12/25/17 05:20 12/25/17 05:20 Laboratory Results - last 24 hr 12/24/17 12/24/17 12/24/17 16:15 17:04 22:18 WBC RBC Hgb Hct MCV MCH MCHC RDW Plt Count MPV Neut % (Auto) Lymph % (Auto) [place] % (Auto) Eos % (Auto) Baso % (Auto) Neut # (Auto) Lymph # (Auto) [place] # (Auto) Eos # (Auto) Baso # (Auto) WBC Differential Differential Comment Sodium 140 Potassium 3.7 Chloride 106 Carbon Dioxide 20.7 L Anion Gap 13 BUN 44 H Creatinine 2.15 H Estimated GFR 23 L Random Glucose 118 H Lactic Acid 1.2 Calcium 8.6 Total Bilirubin AST ALT Alkaline Phosphatase Total Protein Albumin M.tuberculosis DNA (PCR) Not detected 12/25/17 12/25/17 05:20 05:20 WBC 26.2 H RBC 4.88 Hgb 13.5 D Hct 40.8 MCV 83.6 MCH 27.6 MCHC 33.0 RDW 16.3 Plt Count 339 MPV 9.3 Neut % (Auto) 94.2 H Lymph % (Auto) 3.1 L [place] % (Auto) 2.4 Eos % (Auto) 0.1 Baso % (Auto) 0.2 Neut # (Auto) 24.7 H Lymph # (Auto) 0.8 L [place] # (Auto) 0.6 Eos # (Auto) 0.0 Baso # (Auto) 0.0 WBC Differential . Differential Comment Auto diff final Sodium 142 Potassium 3.4 L Chloride 108 H Carbon Dioxide 20.5 L Anion Gap 14 BUN 40 H Creatinine 1.71 H Estimated GFR 30 L Random Glucose 125 H Lactic Acid Calcium 8.2 L Total Bilirubin 0.4 AST 42 H ALT 36 Alkaline Phosphatase 150 H Total Protein 6.7 D Albumin 1.9 L D M.tuberculosis DNA (PCR) Microbiology 12/24/17 17:04 Blood - Peripheral Aerobic Blood Culture - Preliminary No growth in 1 day 12/24/17 17:04 Blood - Peripheral Anaerobic Blood Culture - Preliminary No growth in 1 day 12/24/17 17:04 Blood - Peripheral Aerobic Blood Culture - Preliminary No growth in 1 day 12/24/17 17:04 Blood - Peripheral Anaerobic Blood Culture - Preliminary No growth in 1 day 12/24/17 19:00 Urine - Clean Catch Urine Streptococcus pneumoniae Antigen ( M - Final Presumptive negative for streptococcus pneumoniae antigen, suggesting no current or recent infection. Infection due to Streptococcus pneumoniae cannot be ruled out since the antigen present in the sample may be below the detection limit of the test. 12/24/17 19:00 Urine - Clean Catch Urine Legionella Antigen - Final Presumptive negative for Legionella pneumophila serogroup 1 antigen in urine, suggesting no recent or recurrent infection. Infection due to Legionella cannot be ruled out since other serogroups and species may cause disease, antigen may not be present in urine in early infection, and the level of antigen present in the urine may be below the detection limit of the test. Assessment and Plan - Assessment (1) Pneumonia Code(s): J18.9 - Pneumonia, unspecified organism Status: Acute (2) Sleep apnea syndrome Code(s): G47.30 - Sleep apnea, unspecified Status: Acute (3) Acute exacerbation of chronic obstructive airways disease Code(s): J44.1 - Chronic obstructive pulmonary disease with (acute) exacerbation Status: Acute (4) Acute hypoxemic respiratory failure Code(s): J96.01 - Acute respiratory failure with hypoxia Status: Acute (5) Renal failure Code(s): N19 - Unspecified kidney failure Status: Acute (6) HTN (hypertension) Code(s): I10 - Essential (primary) hypertension Status: Acute (7) CKD (chronic kidney disease) Code(s): N18.9 - Chronic kidney disease, unspecified Status: Acute (8) Anxiety Code(s): F41.9 - Anxiety disorder, unspecified Status: Acute (9) COPD (chronic obstructive pulmonary disease) Code(s): J44.9 - Chronic obstructive pulmonary disease, unspecified Status: Acute - Plan 1, Will continue rocephin 1 G IV daily. 2. Levaquin 500 mg daily 3. Duonebs qid. 4. O2 at 3 L N/C 5. D/C BiPAP she cannot tolerate 6. CBC,BMP ,CXR in am 7. Solumedrol 60 mg IV Q6H and taper in am 8. PFT in am (5) Renal failure Qualifiers: Renal failure chronicity: unspecified chronicity Qualified Code(s): N19 - Unspecified kidney failure
[2017-12-26] MEDS: hydrALAZINE 10 MG Tablet PO PRN ×2 (03:30→21:55)
[2017-12-26] MEDS: MethylPREDNISolone Sod Succinate Inj 125 MG/2 ML Vial IV.PUSH SCH ×3 (03:35→16:54)
[2017-12-26] MEDS: Heparin - SQ 10,000 UNITS/ML Vial SQ SCH ×3 (06:23→21:55)
[2017-12-26 06:53] LABS: Baso # (Auto) 0.1 th/mm3 (0.0-0.2); Baso % (Auto) 0.5 % (0.0-2.0); Eos % (Auto) 0.1 % (0.0-4.0); Hematocrit 42.7 % (35.0-46.0); Lymph # (Auto) 1.1 th/mm3 (1.0-4.8); Mean Corpuscular HGB Conc 32.8 % (32.0-36.0); Mean Corpuscular Volume 82.5 fL (80.0-100.0); Mean Platelet Volume 9.5 fL (7.0-11.0); Mono # (Auto) 0.8 th/mm3 (0.0-0.9); Mono % (Auto) 3.5 % (0.0-8.0); Neut # (Auto) 20.3 th/mm3 (1.8-7.7); Neut % (Auto) 90.9 % (16.0-70.0); Platelet Count 392 th/mm3 (150-450); Red Blood Count 5.18 mil/mm3 (4.00-5.30); Red Cell Distribution Width 16.4 % (11.6-17.2); White Blood Count 22.3 th/mm3 (4.0-11.0)
[2017-12-26 07:12] LABS: Calcium 9.3 mg/dL (8.5-10.1); Carbon Dioxide 24.9 meq/L (21.0-32.0); Potassium 3.3 meq/L (3.5-5.1)
[2017-12-26 08:27] LABS: Lymphocytes 5 % (9-44); Monocytes 1 % (0-8); Promyelocyte 2 % (0-0)
[2017-12-26 08:28] LABS: Platelet Estimate Normal (Normal); Platelet Morphology Normal (Normal)
[2017-12-26] MEDS: Azithromycin 250 MG Tablet PO SCH (10:03)
[2017-12-26] MEDS: buPROPion 150 MG 12 HR Tablet PO SCH ×2 (10:03→21:55)
[2017-12-26] MEDS: Senna/Docusate Sodium 8.6/50 MG Tablet PO SCH ×2 (10:24→21:55)
[2017-12-26] MEDS: Budesonide-Formoterol 160/4.5 MCG 6 GM Inhaler INH SCH ×2 (10:24→21:54)
--- NOTE | 2017-12-26 15:57 | P.PN ---
Physical Exam Vital signs: Vital Signs 12/25/17 16:00 12/25/17 16:07 12/25/17 17:00 Temperature 97 F L Pulse Rate 102 H 110 H 114 H Respiratory Rate 20 19 Blood Pressure 146/94 H Pulse Oximetry 92 L 12/25/17 18:00 12/25/17 19:00 12/25/17 19:36 Temperature Pulse Rate 110 H 116 H 109 H Respiratory Rate 20 Blood Pressure Pulse Oximetry 94 L 12/25/17 20:00 12/25/17 21:00 12/25/17 22:00 Temperature 97.7 F Pulse Rate 116 H 116 H 96 H Respiratory Rate 24 Blood Pressure 160/96 H Pulse Oximetry 93 L 12/25/17 23:00 12/25/17 23:22 12/25/17 23:37 Temperature 96.9 F L Pulse Rate 99 H 96 H 89 Respiratory Rate 24 16 Blood Pressure 154/97 H Pulse Oximetry 95 12/26/17 00:00 12/26/17 01:00 12/26/17 02:00 Temperature Pulse Rate 83 98 H 86 Respiratory Rate Blood Pressure Pulse Oximetry 12/26/17 03:00 12/26/17 03:52 12/26/17 04:00 Temperature 96.1 F L Pulse Rate 93 H 83 82 Respiratory Rate 16 18 Blood Pressure 152/101 H Pulse Oximetry 93 L 12/26/17 05:00 12/26/17 06:00 12/26/17 07:00 Temperature Pulse Rate 96 H 92 H 88 Respiratory Rate Blood Pressure Pulse Oximetry 12/26/17 08:00 12/26/17 08:35 12/26/17 09:00 Temperature 97.4 F L Pulse Rate 80 94 H 98 H Respiratory Rate 16 16 Blood Pressure 155/94 H Pulse Oximetry 94 L 93 L 12/26/17 10:00 12/26/17 11:00 12/26/17 12:00 Temperature 97.8 F Pulse Rate 112 H 104 H 107 H Respiratory Rate 17 Blood Pressure 153/93 H Pulse Oximetry 93 L 93 L 12/26/17 12:10 12/26/17 13:00 12/26/17 14:00 Temperature Pulse Rate 106 H 114 H 115 H Respiratory Rate 20 Blood Pressure Pulse Oximetry 12/26/17 15:00 Temperature Pulse Rate 105 H Respiratory Rate Blood Pressure Pulse Oximetry 95 Intake & Output 12/25/17 12/26/17 12/26/17 18:59 06:59 18:59 Intake Total 1580 / 1580 480 / 480 Output Total 1500 / 1500 900 / 900 Balance 80 / 80 -420 / -420 Weight 93 kg Intake: IV 1100 / 1100 NS Inj 1,000 ML @ 150 mls/hr IV 1000 / 1000 .CONT .Q6H40M KRISSY Rx#:[id number] Rocephin Inj 1,000 MG In NS Inj 100 / 100 100 ML @ 200 mls/hr IV.SIG Q24H KRISSY Rx#:[id number] Oral 480 / 480 480 / 480 Output: Urine 1500 / 1500 900 / 900 Other: Date of Last Bowel Movement 12/26/17 12/26/17 # Bowel Movements 1 Narrative: Subjective Coughing bloody sputum in the morning. With sob speaking in small sentences. No chest pain Feels lightheaded She is very anxious and says she gets more sob Physical exam GENERAL: Pleasant 67 yo F, well nourished well developed patient with some sob, anxious CARDIOVASCULAR: Tachycardic, regular rhythm without murmurs. RESPIRATORY: Decreased breath sounds bilaterally. Bibasilar crackles. No wheezing. GASTROINTESTINAL: Abdomen soft, nondistended, nontender. Bowel sounds normal. MUSCULOSKELETAL: BL lower extremity edema. NEURO/PSYCH: Awake, alert, and oriented. Anxious.Cranial nerves grossly normal. Grossly normal peripheral motor and sensory function Assessment and Plan Respiratory distress/pneumonia Impression: Shortness of breath in association with infiltrate on imaging. PMH COPD CXR- L basilar density could be atelectasis or infiltrate Chest CT- Segmental consolidation medial left lower lung, Mildly prominent middle mediastinal lymph nodes, upper lobe emphysema, 2cm left thyroid nodule VQ- low probability. Abnormalities including emphysema and central deposition CBC- WBC 44.1K, neutrophil predominant. ABG performed on BIPAP with pH 7.44, CO2 33. -Continue to monitor O2/VS -BIPAP vs NC O2 based on respiration -Treat for CAP -given Azithromycin/Rocephin x1 in ED -given Levaquin x1; will await renal function -Will treat for COPD exacerbation -s/p Solumedrol/bronchodilators in ED -Continue Solumedrol 60mg IV q6hrs -Continue Duonebs scheduled, PRN Albuterol -Will check urine Legionella/strep pneumo/sputum culture -Will rule out TB for CT findings based on discussion w/ ED provider -MTB RIF pending -Pulmonology consulted (need for home O2, needed BIPAP on admission, patient does not have Pulm f/u in [facility]) - Encourage IS. EZPAP - Continue xanax prn as patient with anxiety Cr elevation Impression: Pt reports having [facility] but denies need for dialysis. Unknown baseline Cr; presume some PARTH with recent illness -Will give IV NS bolus x1 DC NS as patient with LE edema. Now with fluid overload. Give one dose of lasix -Will trend Cr HTN Impression: Mild hypertension in ED -Will give PRN hydralazine due to renal function Anxiety -Will continue home Wellbutrin - on xanax prn DVT PPX -BID heparin Code Status: Full code seen by pulmonology, weaned to NC O2. Will continue Rocephin/Azithromycin, Symbicort added Encouraged IS and EZPAP Results - Labs CBC & Chem 7: 12/26/17 04:40 12/26/17 04:40 Laboratory Results - last 24 hr 12/26/17 12/26/17 04:40 04:40 WBC 22.3 H RBC 5.18 Hgb 14.0 Hct 42.7 MCV 82.5 MCH 27.0 MCHC 32.8 RDW 16.4 Plt Count 392 MPV 9.5 Prelim Diff (Auto) Slide review pending Neut % (Auto) 90.9 H Lymph % (Auto) 5.0 L [place] % (Auto) 3.5 Eos % (Auto) 0.1 Baso % (Auto) 0.5 Neut # (Auto) 20.3 H Lymph # (Auto) 1.1 [place] # (Auto) 0.8 Eos # (Auto) 0.0 Baso # (Auto) 0.1 WBC Differential Manual diff final Seg Neuts % (Manual) 89 H Band Neuts % (Manual) 3 Lymphocytes % (Manual) 5 L Monocytes % (Manual) 1 Promyelocytes % (Man) 2 H Abs Neuts (Manual) 21.0 H Differential Comment . Platelet Estimate Normal Platelet Morphology Normal Sodium 144 Potassium 3.3 L Chloride 106 Carbon Dioxide 24.9 Anion Gap 13 BUN 35 H Creatinine 1.46 H Estimated GFR 36 L Random Glucose 147 H Calcium 9.3 D Microbiology 12/24/17 17:04 Blood - Peripheral Aerobic Blood Culture - Preliminary No growth in 2 days 12/24/17 17:04 Blood - Peripheral Anaerobic Blood Culture - Preliminary No growth in 2 days 12/24/17 17:04 Blood - Peripheral Aerobic Blood Culture - Preliminary No growth in 2 days 12/24/17 17:04 Blood - Peripheral Anaerobic Blood Culture - Preliminary No growth in 2 days
--- NOTE | 2017-12-26 18:44 | P.PN ---
Subjective Interval history: She is better today and on o2 2L. Good output. No fever. Physical Exam Vital signs: Vital Signs 12/25/17 19:00 12/25/17 19:36 12/25/17 20:00 Temperature 97.7 F Pulse Rate 116 H 109 H 116 H Respiratory Rate 20 24 Blood Pressure 160/96 H Pulse Oximetry 94 L 93 L 12/25/17 21:00 12/25/17 22:00 12/25/17 23:00 Temperature Pulse Rate 116 H 96 H 99 H Respiratory Rate Blood Pressure Pulse Oximetry 12/25/17 23:22 12/25/17 23:37 12/26/17 00:00 Temperature 96.9 F L Pulse Rate 96 H 89 83 Respiratory Rate 24 16 Blood Pressure 154/97 H Pulse Oximetry 95 12/26/17 01:00 12/26/17 02:00 12/26/17 03:00 Temperature Pulse Rate 98 H 86 93 H Respiratory Rate Blood Pressure Pulse Oximetry 12/26/17 03:52 12/26/17 04:00 12/26/17 05:00 Temperature 96.1 F L Pulse Rate 83 82 96 H Respiratory Rate 16 18 Blood Pressure 152/101 H Pulse Oximetry 93 L 12/26/17 06:00 12/26/17 07:00 12/26/17 08:00 Temperature 97.4 F L Pulse Rate 92 H 88 80 Respiratory Rate 16 Blood Pressure 155/94 H Pulse Oximetry 94 L 12/26/17 08:35 12/26/17 09:00 12/26/17 10:00 Temperature Pulse Rate 94 H 98 H 112 H Respiratory Rate 16 Blood Pressure Pulse Oximetry 93 L 12/26/17 11:00 12/26/17 12:00 12/26/17 12:10 Temperature 97.8 F Pulse Rate 104 H 107 H 106 H Respiratory Rate 17 20 Blood Pressure 153/93 H Pulse Oximetry 93 L 93 L 12/26/17 13:00 12/26/17 14:00 12/26/17 15:00 Temperature Pulse Rate 114 H 115 H 105 H Respiratory Rate Blood Pressure Pulse Oximetry 95 12/26/17 16:00 12/26/17 16:04 12/26/17 17:00 Temperature 97.7 F Pulse Rate 111 H 106 H 108 H Respiratory Rate 16 18 Blood Pressure 156/83 H Pulse Oximetry 92 L 94 L 12/26/17 18:00 Temperature Pulse Rate 115 H Respiratory Rate Blood Pressure Pulse Oximetry Intake & Output 12/25/17 12/26/17 12/26/17 18:59 06:59 18:59 Intake Total 1580 / 1580 480 / 480 Output Total 1500 / 1500 900 / 900 1075 / 1075 Balance 80 / 80 -420 / -420 -1075 / -1075 Weight 93 kg Intake: IV 1100 / 1100 NS Inj 1,000 ML @ 150 mls/hr IV 1000 / 1000 .CONT .Q6H40M KRISSY Rx#:[id number] Rocephin Inj 1,000 MG In NS Inj 100 / 100 100 ML @ 200 mls/hr IV.SIG Q24H KRISSY Rx#:[id number] Oral 480 / 480 480 / 480 Output: Urine 1500 / 1500 900 / 900 1075 / 1075 Other: # Voids 2 Date of Last Bowel Movement 12/26/17 12/26/17 # Bowel Movements 1 Narrative: Subjective Coughing clear sputum in the morning. C/O SOB . refused CPAP at HS No chest pain Feels lightheaded Physical exam GENERAL: Pleasant 67 yo F, well nourished well developed patient with some sob, anxious CARDIOVASCULAR: S1 S2, regular rhythm without murmurs. RESPIRATORY: Decreased breath sounds bilaterally. Bibasilar crackles. No wheezing. GASTROINTESTINAL: Abdomen soft, nondistended, nontender. Bowel sounds normal. MUSCULOSKELETAL: BL lower extremity edema. NEURO/PSYCH: Awake, alert, and oriented. Anxious.Cranial nerves grossly normal. Grossly normal peripheral motor and sensory function Results - Labs CBC & Chem 7: 12/26/17 04:40 12/26/17 04:40 Laboratory Results - last 24 hr 12/26/17 12/26/17 04:40 04:40 WBC 22.3 H RBC 5.18 Hgb 14.0 Hct 42.7 MCV 82.5 MCH 27.0 MCHC 32.8 RDW 16.4 Plt Count 392 MPV 9.5 Prelim Diff (Auto) Slide review pending Neut % (Auto) 90.9 H Lymph % (Auto) 5.0 L [place] % (Auto) 3.5 Eos % (Auto) 0.1 Baso % (Auto) 0.5 Neut # (Auto) 20.3 H Lymph # (Auto) 1.1 [place] # (Auto) 0.8 Eos # (Auto) 0.0 Baso # (Auto) 0.1 WBC Differential Manual diff final Seg Neuts % (Manual) 89 H Band Neuts % (Manual) 3 Lymphocytes % (Manual) 5 L Monocytes % (Manual) 1 Promyelocytes % (Man) 2 H Abs Neuts (Manual) 21.0 H Differential Comment . Platelet Estimate Normal Platelet Morphology Normal Sodium 144 Potassium 3.3 L Chloride 106 Carbon Dioxide 24.9 Anion Gap 13 BUN 35 H Creatinine 1.46 H Estimated GFR 36 L Random Glucose 147 H Calcium 9.3 D Microbiology 12/24/17 17:04 Blood - Peripheral Aerobic Blood Culture - Preliminary No growth in 2 days 12/24/17 17:04 Blood - Peripheral Anaerobic Blood Culture - Preliminary No growth in 2 days 12/24/17 17:04 Blood - Peripheral Aerobic Blood Culture - Preliminary No growth in 2 days 12/24/17 17:04 Blood - Peripheral Anaerobic Blood Culture - Preliminary No growth in 2 days Assessment and Plan - Assessment (1) Pneumonia Code(s): J18.9 - Pneumonia, unspecified organism Status: Acute Plan: Continue antibiotics, Rocephin / Zithromax (2) Sleep apnea syndrome Code(s): G47.30 - Sleep apnea, unspecified Status: Acute (3) Acute exacerbation of chronic obstructive airways disease Code(s): J44.1 - Chronic obstructive pulmonary disease with (acute) exacerbation Status: Acute (4) Acute hypoxemic respiratory failure Code(s): J96.01 - Acute respiratory failure with hypoxia Status: Acute (5) Renal failure Code(s): N19 - Unspecified kidney failure Status: Acute (6) HTN (hypertension) Code(s): I10 - Essential (primary) hypertension Status: Acute (7) CKD (chronic kidney disease) Code(s): N18.9 - Chronic kidney disease, unspecified Status: Acute (8) Anxiety Code(s): F41.9 - Anxiety disorder, unspecified Status: Acute (9) COPD (chronic obstructive pulmonary disease) Code(s): J44.9 - Chronic obstructive pulmonary disease, unspecified Status: Acute - Plan 1, Will continue Rocephin 1 G IV daily and Zithromax 250 mg PO daily 2. Up with help 3. Duonebs qid. 4. O2 at 3 L N/C 5. D/C BiPAP she cannot tolerate 6. CBC,BMP 7. Solumedrol 40 mg IV Q8H. (5) Renal failure Qualifiers: Renal failure chronicity: unspecified chronicity Qualified Code(s): N19 - Unspecified kidney failure
[2017-12-26] MEDS: MethylPREDNISolone Sod Succinate Inj 40 MG/ML Vial IV.PUSH SCH (21:54)
[2017-12-27] MEDS: LORazepam 0.5 MG Tablet PO PRN (00:22)
[2017-12-27] MEDS: hydrALAZINE 10 MG Tablet PO PRN ×3 (00:22→20:40)
[2017-12-27] MEDS: Heparin - SQ 10,000 UNITS/ML Vial SQ SCH (05:26)
[2017-12-27] MEDS: MethylPREDNISolone Sod Succinate Inj 40 MG/ML Vial IV.PUSH SCH ×3 (05:26→21:12)
[2017-12-27] MEDS: buPROPion 150 MG 12 HR Tablet PO SCH ×2 (08:27→20:41)
[2017-12-27] MEDS: Senna/Docusate Sodium 8.6/50 MG Tablet PO SCH ×2 (08:28→20:42)
[2017-12-27] MEDS: Azithromycin 250 MG Tablet PO SCH (08:28)
[2017-12-27] MEDS: Budesonide-Formoterol 160/4.5 MCG 6 GM Inhaler INH SCH ×2 (08:31→20:41)
[2017-12-27] MEDS ORDERED: Magnesium Oxide 400 MG Tablet PO ONE (10:08)
[2017-12-27] MEDS ORDERED: Dextrose 5%/NaCl 0.45% Inj 1,000 ML IV.CONT SCH (12:30)
[2017-12-27] MEDS ORDERED: RESP: Albuterol Concentrated 2.5 MG/0.5 ML Neb NEB SCH (12:30)
--- NOTE | 2017-12-27 12:34 | P.PN ---
Subjective Interval history: Has some bloody sputum. No fever. SOB is better. CT showed a Left base infiltrate Physical Exam Vital signs: Vital Signs 12/26/17 13:00 12/26/17 14:00 12/26/17 15:00 Temperature Pulse Rate 114 H 115 H 105 H Respiratory Rate Blood Pressure Pulse Oximetry 95 12/26/17 16:00 12/26/17 16:04 12/26/17 17:00 Temperature 97.7 F Pulse Rate 111 H 106 H 108 H Respiratory Rate 16 18 Blood Pressure 156/83 H Pulse Oximetry 92 L 94 L 12/26/17 18:00 12/26/17 19:00 12/26/17 19:29 Temperature 98.4 F Pulse Rate 115 H 111 H 107 H Respiratory Rate 22 Blood Pressure 195/111 H Pulse Oximetry 92 L 92 L 12/26/17 20:00 12/26/17 20:48 12/26/17 21:00 Temperature Pulse Rate 100 H 99 H 100 H Respiratory Rate 19 Blood Pressure Pulse Oximetry 92 L 12/26/17 22:00 12/26/17 23:00 12/27/17 00:00 Temperature 97.8 F Pulse Rate 110 H 103 H 102 H Respiratory Rate 20 Blood Pressure 184/116 H Pulse Oximetry 93 L 92 L 12/27/17 00:40 12/27/17 01:00 12/27/17 02:00 Temperature Pulse Rate 101 H 94 H 81 Respiratory Rate 17 Blood Pressure Pulse Oximetry 12/27/17 03:00 12/27/17 03:33 12/27/17 03:42 Temperature 97 F L Pulse Rate 90 103 H 97 H Respiratory Rate 18 17 Blood Pressure 153/103 H Pulse Oximetry 93 L 93 L 12/27/17 04:00 12/27/17 05:00 12/27/17 06:00 Temperature Pulse Rate 102 H 90 85 Respiratory Rate Blood Pressure Pulse Oximetry 12/27/17 07:00 12/27/17 08:00 12/27/17 08:18 Temperature 97.7 F Pulse Rate 80 82 93 H Respiratory Rate 20 20 Blood Pressure 160/102 H Pulse Oximetry 95 95 12/27/17 09:00 12/27/17 10:00 12/27/17 11:00 Temperature Pulse Rate 112 H 98 H 98 H Respiratory Rate Blood Pressure Pulse Oximetry 94 L 12/27/17 11:51 Temperature Pulse Rate 78 Respiratory Rate 20 Blood Pressure Pulse Oximetry Intake & Output 12/26/17 12/27/17 12/27/17 18:59 06:59 18:59 Intake Total 100 / 100 480 / 480 Output Total 1075 / 1075 300 / 300 Balance -975 / -975 180 / 180 Weight 91.1 kg Intake: IV 100 / 100 Rocephin Inj 1,000 MG In NS Inj 100 / 100 100 ML @ 200 mls/hr IV.SIG Q24H KRISSY Rx#:[id number] Oral 480 / 480 Output: Urine 1075 / 1075 300 / 300 Other: # Voids 2 Date of Last Bowel Movement 12/26/17 Narrative: Subjective Coughing bloody sputum in the morning. C/O SOB . refused CPAP at HS No chest pain Physical exam GENERAL: Pleasant 67 yo F, well nourished well developed patient with some sob. CARDIOVASCULAR: S1 S2, regular rhythm without murmurs. RESPIRATORY: Decreased breath sounds bilaterally. Occ Bibasilar crackles. No wheezing. GASTROINTESTINAL: Abdomen soft, nondistended, nontender. Bowel sounds normal. MUSCULOSKELETAL: 1 + lower extremity edema. NEURO/PSYCH: Awake, alert, and oriented. Anxious.Cranial nerves grossly normal. Grossly normal peripheral motor and sensory function Results - Labs CBC & Chem 7: 12/26/17 04:40 12/26/17 04:40 Microbiology 12/24/17 17:04 Blood - Peripheral Aerobic Blood Culture - Preliminary No growth in 3 days 12/24/17 17:04 Blood - Peripheral Anaerobic Blood Culture - Preliminary No growth in 3 days 12/24/17 17:04 Blood - Peripheral Aerobic Blood Culture - Preliminary No growth in 3 days 12/24/17 17:04 Blood - Peripheral Anaerobic Blood Culture - Preliminary No growth in 3 days Assessment and Plan - Assessment (1) Pneumonia Code(s): J18.9 - Pneumonia, unspecified organism Status: Acute (2) Sleep apnea syndrome Code(s): G47.30 - Sleep apnea, unspecified Status: Acute (3) Acute exacerbation of chronic obstructive airways disease Code(s): J44.1 - Chronic obstructive pulmonary disease with (acute) exacerbation Status: Acute (4) Acute hypoxemic respiratory failure Code(s): J96.01 - Acute respiratory failure with hypoxia Status: Acute (5) Renal failure Code(s): N19 - Unspecified kidney failure Status: Acute (6) HTN (hypertension) Code(s): I10 - Essential (primary) hypertension Status: Acute (7) CKD (chronic kidney disease) Code(s): N18.9 - Chronic kidney disease, unspecified Status: Acute (8) Anxiety Code(s): F41.9 - Anxiety disorder, unspecified Status: Acute (9) COPD (chronic obstructive pulmonary disease) Code(s): J44.9 - Chronic obstructive pulmonary disease, unspecified Status: Acute - Plan 1. continue Rocephin 1 G IV daily and Zithromax 250 mg PO daily 2. Will schedule Bronchoscopy in am and Risks were discussed 3. Duonebs qid. 4. O2 at 3 L N/C 5. Coag profile today 6. CBC,BMP 7. Cont Solumedrol 40 mg IV Q8H. (5) Renal failure Qualifiers: Renal failure chronicity: unspecified chronicity Qualified Code(s): N19 - Unspecified kidney failure
[2017-12-27 13:14] LABS: Activated Partial Thrombo Time 27.3 sec (24.3-30.1); INR 1.1 Ratio; Prothrombin Time 10.8 sec (9.8-11.6)
[2017-12-27] MEDS: dilTIAZem 30 MG Tablet PO SCH ×3 (13:22→20:42)
--- NOTE | 2017-12-27 16:30 | XR ---
EXAM DATE: 12/27/2017 4:26 PM EDT AGE/SEX: 67 years / Female INDICATIONS: . Cough, shortness of breath, and blood in sputum. Follow-up left lower lobe infiltrate seen on CT. CLINICAL DATA: This is the patient's subsequent encounter. Patient reports that signs and symptoms h ave been present for 3 days and indicates a pain score of 0/10. MEDICAL/SURGICAL HISTORY: None. None. COMPAR[place] [facility] [place]. . FINDINGS: PA and lateral views of the chest demonstrate the lungs to be symmetrically aerated without evidence of mass or effusion. Patchy infiltrate remains in the left lung base without significant change. Ther e is no new consolidation. The right lung is clear. The cardiomediastinal contours are unremarkable. Osseous structures are intact. CONCLUSION: 1. Patchy infiltrate remains in the left lung base without significant change. There is no new conso lidation. 2. The right lung is clear. Electronically signed by: John Sanders MD 12/27/2017 4:29 PM EDT
--- NOTE | 2017-12-27 20:14 | P.PN ---
Physical Exam Vital signs: Vital Signs 12/26/17 20:48 12/26/17 21:00 12/26/17 22:00 Temperature Pulse Rate 99 H 100 H 110 H Respiratory Rate 19 Blood Pressure Pulse Oximetry 92 L 12/26/17 23:00 12/27/17 00:00 12/27/17 00:40 Temperature 97.8 F Pulse Rate 103 H 102 H 101 H Respiratory Rate 20 17 Blood Pressure 184/116 H Pulse Oximetry 93 L 92 L 12/27/17 01:00 12/27/17 02:00 12/27/17 03:00 Temperature Pulse Rate 94 H 81 90 Respiratory Rate Blood Pressure Pulse Oximetry 93 L 12/27/17 03:33 12/27/17 03:42 12/27/17 04:00 Temperature 97 F L Pulse Rate 103 H 97 H 102 H Respiratory Rate 18 17 Blood Pressure 153/103 H Pulse Oximetry 93 L 12/27/17 05:00 12/27/17 06:00 12/27/17 07:00 Temperature Pulse Rate 90 85 80 Respiratory Rate Blood Pressure Pulse Oximetry 95 12/27/17 08:00 12/27/17 08:18 12/27/17 09:00 Temperature 97.7 F Pulse Rate 82 93 H 112 H Respiratory Rate 20 20 Blood Pressure 160/102 H Pulse Oximetry 95 12/27/17 10:00 12/27/17 11:00 12/27/17 11:51 Temperature Pulse Rate 98 H 98 H 78 Respiratory Rate 20 Blood Pressure Pulse Oximetry 94 L 12/27/17 12:00 12/27/17 13:00 12/27/17 14:00 Temperature 97.9 F Pulse Rate 106 H 101 H 114 H Respiratory Rate 16 Blood Pressure 166/96 H Pulse Oximetry 94 L 12/27/17 15:00 12/27/17 16:00 12/27/17 16:39 Temperature 98.0 F Pulse Rate 113 H 111 H 111 H Respiratory Rate 16 20 Blood Pressure 166/96 H Pulse Oximetry 94 L 93 L 12/27/17 17:00 12/27/17 18:00 12/27/17 19:14 Temperature Pulse Rate 106 H 112 H 110 H Respiratory Rate 20 Blood Pressure Pulse Oximetry 12/27/17 19:15 Temperature Pulse Rate Respiratory Rate Blood Pressure Pulse Oximetry 92 L Intake & Output 12/27/17 12/27/17 12/28/17 06:59 18:59 06:59 Intake Total 480 / 480 100 / 100 Output Total 300 / 300 700 / 700 Balance 180 / 180 -700 / -700 100 / 100 Weight 91.1 kg Intake: IV 100 / 100 Rocephin Inj 1,000 MG In NS Inj 100 / 100 100 ML @ 200 mls/hr IV.SIG Q24H [facility] Rx#:[id number] Oral 480 / 480 Output: Urine 300 / 300 700 / 700 Other: Date of Last Bowel Movement 12/26/17 Narrative: Subjective With bloody sputum, wheezing improved some. SOB improving as well. No chest pain no n/v/d/c. Physical exam GENERAL: Pleasant 67 yo F, well nourished well developed patient with some sob, anxious CARDIOVASCULAR: Tachycardic, regular rhythm without murmurs. RESPIRATORY: Decreased breath sounds bilaterally. Bibasilar crackles. No wheezing. GASTROINTESTINAL: Abdomen soft, nondistended, nontender. Bowel sounds normal. MUSCULOSKELETAL: BL lower extremity edema. NEURO/PSYCH: Awake, alert, and oriented. Anxious.Cranial nerves grossly normal. Grossly normal peripheral motor and sensory function Assessment and Plan Respiratory distress/pneumonia Impression: Shortness of breath in association with infiltrate on imaging. H COPD CXR- L basilar density could be atelectasis or infiltrate Chest CT- Segmental consolidation medial left lower lung, Mildly prominent middle mediastinal lymph nodes, upper lobe emphysema, 2cm left thyroid nodule VQ- low probability. Abnormalities including emphysema and central deposition CBC- WBC 44.1K, neutrophil predominant. ABG performed on BIPAP with pH 7.44, CO2 33 om admission. Weaned off bipap. -Continue to monitor O2/VS -doesn't need BIPAP at this time. Satting well on NC O2 based on respiration -Plan for bronch 12/28/[address] Sood -Treat for CAP -Continue Azithromycin/Rocephin -Will treat for COPD exacerbation -Continue to taper as tolerated Solumedrol 40mg IV q8hrs -Continue Duonebs scheduled, PRN Albuterol -Will check urine Legionella/strep pneumo/sputum culture neg so far -Will rule out TB for CT findings -MTB RIF -Pulmonology consulted (need for home O2, needed BIPAP on admission, patient does not have Pulm f/u in [place]) - Encourage IS. 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 Unknown baseline Cr; presume some PARTH with recent illness -Will give IV NS bolus x1 DC NS as patient with LE edema. Now with fluid overload. Give one dose of lasix -Will trend Cr HTN Impression: Mild hypertension in ED -Will give PRN hydralazine due to renal function Anxiety -Will continue home Wellbutrin - on xanax prn DVT PPX -BID heparin Code Status: Full code seen by pulmonology, weaned to [place] O2. Continue Rocephin/Azithromycin, Symbicort added Encouraged IS and EZPAP Plan for bronch 12/28/[address] Sood Results - Labs CBC & Chem 7: 12/26/17 04:40 12/26/17 04:40 Laboratory Results - last 24 hr 12/27/17 12:41 PT 10.8 INR 1.1 APTT 27.3 Microbiology 12/24/17 17:04 Blood - Peripheral Aerobic Blood Culture - Preliminary No growth in 3 days 12/24/17 17:04 Blood - Peripheral Anaerobic Blood Culture - Preliminary No growth in 3 days 12/24/17 17:04 Blood - Peripheral Aerobic Blood Culture - Preliminary No growth in 3 days 12/24/17 17:04 Blood - Peripheral Anaerobic Blood Culture - Preliminary No growth in 3 days - Imaging Impressions Chest X-Ray 12/27/17 00:00 CONCLUSION: 1. Patchy infiltrate remains in the left lung base without significant change. There is no new consolidation. 2. The right lung is clear.
[2017-12-28 05:50] LABS: Hematocrit 44.9 % (35.0-46.0); Hemoglobin 14.8 gm/dL (11.6-15.3); Mean Corpuscular HGB Conc 32.9 % (32.0-36.0); Mean Corpuscular Hemoglobin 27.3 pg (27.0-34.0); Mean Corpuscular Volume 83.1 fL (80.0-100.0); Mean Platelet Volume 9.3 fL (7.0-11.0); Platelet Count 433 th/mm3 (150-450); Red Blood Count 5.41 mil/mm3 (4.00-5.30); Red Cell Distribution Width 16.9 % (11.6-17.2); White Blood Count 18.6 th/mm3 (4.0-11.0)
[2017-12-28 06:15] LABS: Calcium 8.9 mg/dL (8.5-10.1); Carbon Dioxide 27.7 meq/L (21.0-32.0); Potassium 4.6 meq/L (3.5-5.1)
[2017-12-28] MEDS: MethylPREDNISolone Sod Succinate Inj 40 MG/ML Vial IV.PUSH SCH ×3 (06:24→20:27)
[2017-12-28 07:46] LABS: Lymphocytes 5 % (9-44); Metamyelocytes 5 % (0-1); Monocytes 4 % (0-8); Myelocytes 2 % (0-0)
[2017-12-28 07:47] LABS: Platelet Morphology Normal (Normal)
[2017-12-28] MEDS: Budesonide-Formoterol 160/4.5 MCG 6 GM Inhaler INH SCH ×2 (09:22→20:27)
[2017-12-28] MEDS: Dextrose 5%/NaCl 0.45% Inj 1,000 ML IV.CONT SCH (09:22)
[2017-12-28] MEDS: buPROPion 150 MG 12 HR Tablet PO SCH ×2 (09:22→20:28)
[2017-12-28] MEDS: Magnesium Oxide 400 MG Tablet PO SCH (09:22)
[2017-12-28] MEDS: dilTIAZem 30 MG Tablet PO SCH ×4 (09:22→20:27)
[2017-12-28] MEDS: Azithromycin 250 MG Tablet PO SCH (09:22)
[2017-12-28] MEDS: Senna/Docusate Sodium 8.6/50 MG Tablet PO SCH ×2 (09:23→20:27)
[2017-12-28] MEDS ORDERED: fentaNYL Citrate Inj 100 MCG/2 ML Ampul ONE (12:41)
--- NOTE | 2017-12-28 13:41 | XR ---
EXAM DATE: 12/28/2017 1:33 PM EDT AGE/SEX: 67 years / Female INDICATIONS: Post bronchoscopy, right side. CLINICAL DATA: This is the patient's subsequent encounter. Patient reports that signs and symptoms h ave been present for 2 days and indicates a pain score of Nonresponsive. MEDICAL/SURGICAL HISTORY: None. None. COMPARISON: [facility] – [place]ST 2V PA&LAT, 12/27/2017. . FINDINGS: A single AP erect portable view of the chest demonstrates the lungs to be symmetrically aerated witho ut evidence of mass, fluid infiltrate or effusion. Mild patchy opacity remains in the left lung base without significant change. There is no pneumothorax. The cardiomediastinal contours are unremarkable . Osseous structures are intact. CONCLUSION: 1. Mild patchy opacity remains in the left lung base. 2. No pneumothorax. Electronically signed by: John Sanders MD 12/28/2017 1:40 PM EDT
--- NOTE | 2017-12-28 13:43 | MP ---
cc: Nell Sood MD DATE OF OPERATION: 12/28/2017 PROCEDURE: Fiberoptic bronchoscopy with brushing, biopsies, and washings. PREOPERATIVE DIAGNOSIS: Hemoptysis and lower lobe infiltrates. POSTOPERATIVE DIAGNOSIS: Hemoptysis and lower lobe infiltrates. ANESTHESIA: General with intubation. SURGEON: Nell Sood MD. PROCEDURE AND FINDINGS: The patient was intubated under general anesthesia, following which the Olympus IT180 bronchoscope was used to visualize the bronchi. The scope was advanced through the endotracheal tube into the trachea. The trachea and gustavo appeared normal. Scope was then advanced into the right mainstem and right upper lobe segmental bronchi. These bronchi demonstrated mucoid secretions, but no endobronchial lesions were seen. Next, the right middle lobe segmental bronchi were visualized, which demonstrated mild endobronchitis but there were no endobronchial lesions and no evidence of bleeding. The scope was then advanced into the right lower lobe segmental bronchi. Right lower lobe segmental bronchi demonstrated old bloody secretions with mucous plugs and these were suctioned out and saline washings and lavage were done. The underlying bronchi demonstrated moderate endobronchitis with mucosal edema and there was mucosal ridging with some friability of the mucosa of the basilar segmental bronchi. Biopsies were done from here and cytology brushings were done as well. Minimal bleeding was observed, controlled with saline washings. Saline lavage was done. The scope was then advanced into the left mainstem and left upper lobe segmental bronchi. These bronchi demonstrated no evidence of bleeding and no endobronchial lesions were noted here. Next, the left lower lobe segmental bronchi visualized, which demonstrated mucoid secretions and moderate endobronchitis with mucosal edema, but no endobronchial mass was seen and no evidence of bleeding. Washings were done and the procedure was then terminated. The patient tolerated the procedure well. Nell Sood MD VJD/ts/ll , 12:20 PM , 12:28 PM
--- NOTE | 2017-12-28 14:26 | P.PN ---
Physical Exam Vital signs: Vital Signs 12/27/17 15:00 12/27/17 16:00 12/27/17 16:39 Temperature 98.0 F Pulse Rate 113 H 111 H 111 H Respiratory Rate 16 20 Blood Pressure 166/96 H Pulse Oximetry 94 L 93 L 12/27/17 17:00 12/27/17 18:00 12/27/17 19:00 Temperature Pulse Rate 106 H 112 H 119 H Respiratory Rate Blood Pressure Pulse Oximetry 12/27/17 19:14 12/27/17 19:15 12/27/17 20:00 Temperature 98.2 F Pulse Rate 110 H 103 H Respiratory Rate 20 20 Blood Pressure 186/111 H Pulse Oximetry 92 L 92 L 12/27/17 21:00 12/27/17 22:00 12/27/17 23:00 Temperature Pulse Rate 100 H 100 H 87 Respiratory Rate Blood Pressure Pulse Oximetry 12/28/17 00:00 12/28/17 00:26 12/28/17 01:00 Temperature 98.2 F Pulse Rate 102 H 95 H 94 H Respiratory Rate 20 16 Blood Pressure 186/114 H Pulse Oximetry 92 L 12/28/17 02:00 12/28/17 03:00 12/28/17 04:00 Temperature 97.8 F Pulse Rate 82 83 88 Respiratory Rate 20 Blood Pressure 137/89 Pulse Oximetry 94 L 12/28/17 05:00 12/28/17 06:00 12/28/17 07:00 Temperature Pulse Rate 82 86 80 Respiratory Rate Blood Pressure Pulse Oximetry 12/28/17 08:00 12/28/17 08:10 12/28/17 09:00 Temperature 97.6 F Pulse Rate 91 H 83 90 Respiratory Rate 19 18 Blood Pressure 151/97 H Pulse Oximetry 92 L 93 L 12/28/17 10:00 12/28/17 11:20 Temperature 97.5 F L Pulse Rate 80 89 Respiratory Rate 18 Blood Pressure 146/89 H Pulse Oximetry 91 L Intake & Output 12/27/17 12/28/17 12/28/17 18:59 06:59 18:59 Intake Total 580 / 580 Output Total 700 / 700 700 / 700 Balance -700 / -700 -120 / -120 Weight 90.7 kg Intake: IV 100 / 100 Rocephin Inj 1,000 MG In NS Inj 100 / 100 100 ML @ 200 mls/hr IV.SIG Q24H [facility] Rx#:[id number] Oral 480 / 480 Output: Urine 700 / 700 700 / 700 Other: Date of Last Bowel Movement 12/26/17 12/27/17 12/27/17 Narrative: Subjective No bloody sputum today, wheezing improved after nebs. Still with SOB. No chest pain no n/v/d/c. Physical exam GENERAL: Pleasant 67 yo F, well nourished well developed patient with some sob, anxious CARDIOVASCULAR: Tachycardic, regular rhythm without murmurs. RESPIRATORY: Decreased breath sounds bilaterally. Bibasilar crackles. No wheezing. GASTROINTESTINAL: Abdomen soft, nondistended, nontender. Bowel sounds normal. MUSCULOSKELETAL: BL lower extremity edema. NEURO/PSYCH: Awake, alert, and oriented. Anxious.Cranial nerves grossly normal. Grossly normal peripheral motor and sensory function Assessment and Plan Respiratory distress/pneumonia Impression: Shortness of breath in association with infiltrate on imaging. PM[facility] COPD CXR- L basilar density could be atelectasis or infiltrate Chest CT- Segmental consolidation medial left lower lung, Mildly prominent middle mediastinal lymph nodes, upper lobe emphysema, 2cm left thyroid nodule VQ- low probability. Abnormalities including emphysema and central deposition CBC- WBC 44.1K, neutrophil predominant. ABG performed on BIPAP with pH 7.44, CO2 33 om admission. Weaned off bipap. -Continue to monitor O2/VS -doesn't need BIPAP at this time. Satting well on NC O2 based on respiration -Plan for bronch 12/28/[address] Sood -Treat for CAP -Continue Azithromycin/Rocephin -Will treat for COPD exacerbation -Continue to taper as tolerated Solumedrol 40mg IV q8hrs -Continue Duonebs scheduled, PRN Albuterol -Will check urine Legionella/strep pneumo/sputum culture neg so far -Will rule out TB for CT findings -MTB RIF -Pulmonology consulted (need for home O2, needed BIPAP on admission, patient does not have Pulm f/u in [facility]) - Encourage IS. 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 Unknown baseline Cr; presume some PARTH with recent illness -Will give IV NS bolus x1 DC NS as patient with LE edema. Now with fluid overload. Give one dose of lasix -Will trend Cr HTN Impression: Mild hypertension in ED -Will give PRN hydralazine due to renal function Anxiety -Will continue home Wellbutrin - on xanax prn DVT PPX -BID heparin Code Status: Full code seen by pulmonology, weaned to [place] O2. Continue Rocephin/Azithromycin, Symbicort added Encouraged IS and EZPAP Plan for bronch 12/28/[address] Sood Discussed withthe patient ,nurse. Also at patient request I spoke with family CM also consulted for [place] plan [place] and likely she will needs O2 at [place]. Plan to do O2 walking test at [place] Results - Labs CBC & Chem 7: 12/28/17 05:14 12/28/17 05:14 Laboratory Results - last 24 hr 12/28/17 12/28/17 05:14 05:14 WBC 18.6 H RBC 5.41 H Hgb 14.8 Hct 44.9 MCV 83.1 MCH 27.3 MCHC 32.9 RDW 16.9 Plt Count 433 MPV 9.3 Prelim Diff (Auto) Manual diff required WBC Differential Manual diff final Seg Neuts % (Manual) 84 H Lymphocytes % (Manual) 5 L Monocytes % (Manual) 4 Metamyelocytes % (Man) 5 H Myelocytes % (Man) 2 H Abs Neuts (Manual) 16.9 H Differential Comment . Platelet Estimate High H Platelet Morphology Normal Sodium 142 Potassium 4.6 Chloride 106 Carbon Dioxide 27.7 Anion Gap 8 BUN 32 H Creatinine 1.24 H Estimated GFR 43 L Random Glucose 181 H Calcium 8.9 Microbiology 12/24/17 17:04 Blood - Peripheral Aerobic Blood Culture - Preliminary No growth in 4 days 12/24/17 17:04 Blood - Peripheral Anaerobic Blood Culture - Preliminary No growth in 4 days 12/24/17 17:04 Blood - Peripheral Aerobic Blood Culture - Preliminary No growth in 4 days 12/24/17 17:04 Blood - Peripheral Anaerobic Blood Culture - Preliminary No growth in 4 days - Imaging Impressions Chest X-Ray 12/27/17 00:00 CONCLUSION: 1. Patchy infiltrate remains in the left lung base without significant change. There is no new consolidation. 2. The right lung is clear. Chest X-Ray 12/28/17 00:00 CONCLUSION: 1. Mild patchy opacity remains in the left lung base. 2. No pneumothorax.
[2017-12-29] MEDS: Dextrose 5%/NaCl 0.45% Inj 1,000 ML IV.CONT SCH (01:12)
[2017-12-29] MEDS: Azithromycin 250 MG Tablet PO SCH (09:02)
[2017-12-29] MEDS: buPROPion 150 MG 12 HR Tablet PO SCH ×2 (09:02→21:25)
[2017-12-29] MEDS: dilTIAZem 30 MG Tablet PO SCH ×4 (09:02→21:24)
[2017-12-29] MEDS: MethylPREDNISolone Sod Succinate Inj 40 MG/ML Vial IV.PUSH SCH ×2 (09:03→21:25)
[2017-12-29] MEDS: Magnesium Oxide 400 MG Tablet PO SCH (09:03)
[2017-12-29] MEDS: Senna/Docusate Sodium 8.6/50 MG Tablet PO SCH ×2 (09:03→21:26)
[2017-12-29] MEDS: Budesonide-Formoterol 160/4.5 MCG 6 GM Inhaler INH SCH ×2 (09:05→21:25)
--- NOTE | 2017-12-29 19:21 | P.PN ---
Subjective Interval history: Feels much better. Bronchial wash shows Gram Neg rods. She is on O2 at 3 L. No Hemoptysis now Physical Exam Vital signs: Vital Signs 12/28/17 20:00 12/28/17 21:00 12/28/17 22:00 Temperature 98.4 F Pulse Rate 92 H 94 H 92 H Respiratory Rate 20 Blood Pressure 138/71 Pulse Oximetry 93 L 12/28/17 23:00 12/29/17 00:00 12/29/17 01:00 Temperature 98.3 F Pulse Rate 85 82 76 Respiratory Rate 18 Blood Pressure 139/74 Pulse Oximetry 94 L 12/29/17 02:00 12/29/17 03:00 12/29/17 04:00 Temperature 98.2 F Pulse Rate 72 73 92 H Respiratory Rate 18 Blood Pressure 154/91 H Pulse Oximetry 93 L 12/29/17 05:00 12/29/17 06:00 12/29/17 07:00 Temperature Pulse Rate 69 71 70 Respiratory Rate Blood Pressure Pulse Oximetry 12/29/17 08:00 12/29/17 09:00 12/29/17 10:00 Temperature 97.6 F Pulse Rate 86 90 96 H Respiratory Rate 18 Blood Pressure 156/98 H Pulse Oximetry 92 L 12/29/17 11:00 12/29/17 12:00 12/29/17 13:00 Temperature 98.2 F Pulse Rate 84 95 H 93 H Respiratory Rate 20 Blood Pressure 152/91 H Pulse Oximetry 92 L 12/29/17 14:00 12/29/17 15:00 12/29/17 16:00 Temperature 97.6 F Pulse Rate 100 H 87 85 Respiratory Rate 18 Blood Pressure 149/93 H Pulse Oximetry 95 12/29/17 16:51 12/29/17 18:00 Temperature Pulse Rate 89 90 Respiratory Rate Blood Pressure Pulse Oximetry Intake & Output 12/29/17 12/29/17 12/30/17 06:59 18:59 06:59 Intake Total 820 / 820 1060 / 1060 Output Total 425 / 425 350 / 350 Balance 395 / 395 710 / 710 Weight 92 kg Intake: IV 100 / 100 100 / 100 Rocephin Inj 1,000 MG In NS Inj 100 / 100 100 / 100 100 ML @ 200 mls/hr IV.SIG Q24H [facility] Rx#:[id number] Oral 720 / 720 960 / 960 Output: Urine 425 / 425 350 / 350 Other: # Voids 2 Date of Last Bowel Movement 12/29/17 12/29/17 # Bowel Movements 1 Narrative: Subjective No bloody sputum today, wheezing improved after nebs. Still with SOB. No chest pain no n/v/d/c. Physical exam GENERAL: Pleasant 67 yo F, well nourished well developed patient with some sob, anxious CARDIOVASCULAR: regular rhythm without murmurs. RESPIRATORY: Decreased breath sounds bilaterally. Bibasilar crackles. No wheezing. GASTROINTESTINAL: Abdomen soft, nondistended, nontender. Bowel sounds normal. MUSCULOSKELETAL: Bilat lower extremity edema. NEURO/PSYCH: Awake, alert, and oriented. Anxious.Cranial nerves grossly normal. Grossly normal peripheral motor and sensory function Results - Labs CBC & Chem 7: 12/28/17 05:14 12/28/17 05:14 Microbiology 12/28/17 12:05 Bronchial - Bronchial Gram Stain - Final 12/28/17 12:05 Bronchial - Bronchial Bronchial Culture - Preliminary gram negative rods 12/28/17 12:10 Bronchial - Right Lower Lobe Gram Stain - Final 12/28/17 12:10 Bronchial - Right Lower Lobe Bronchial Culture - Preliminary No growth in 24 hours 12/24/17 17:04 Blood - Peripheral Aerobic Blood Culture - Final No growth in 5 days 12/24/17 17:04 Blood - Peripheral Anaerobic Blood Culture - Final No growth in 5 days 12/24/17 17:04 Blood - Peripheral Aerobic Blood Culture - Final No growth in 5 days 12/24/17 17:04 Blood - Peripheral Anaerobic Blood Culture - Final No growth in 5 days 12/28/17 12:05 Bronchial Washings - Bronchial Fungal Smear - Final No fungal elements seen 12/28/17 12:10 Bronchial Washings - Right Lower Lobe Fungal Smear - Final No fungal elements seen Assessment and Plan - Assessment (1) Pneumonia Code(s): J18.9 - Pneumonia, unspecified organism Status: Acute (2) Sleep apnea syndrome Code(s): G47.30 - Sleep apnea, unspecified Status: Acute (3) Acute exacerbation of chronic obstructive airways disease Code(s): J44.1 - Chronic obstructive pulmonary disease with (acute) exacerbation Status: Acute (4) Acute hypoxemic respiratory failure Code(s): J96.01 - Acute respiratory failure with hypoxia Status: Acute (5) Renal failure Code(s): N19 - Unspecified kidney failure Status: Acute (6) HTN (hypertension) Code(s): I10 - Essential (primary) hypertension Status: Acute (7) CKD (chronic kidney disease) Code(s): N18.9 - Chronic kidney disease, unspecified Status: Acute (8) Anxiety Code(s): F41.9 - Anxiety disorder, unspecified Status: Acute (9) COPD (chronic obstructive pulmonary disease) Code(s): J44.9 - Chronic obstructive pulmonary disease, unspecified Status: Acute - Plan 1. D/C Rocephin and add Cefipime 2 G IV BID 2. Will get Chest Xray 3. Cont Duonebs qid. 4. O2 at 3 L N/C 5. Add Symbicort 160/4.5 mcg , 2 puffs BID 6. CBC,BMP in am 7. Cont Solumedrol 40 mg IV BID (5) Renal failure Qualifiers: Renal failure chronicity: unspecified chronicity Qualified Code(s): N19 - Unspecified kidney failure
--- NOTE | 2017-12-29 21:41 | P.PN ---
Physical Exam Vital signs: Vital Signs 12/28/17 22:00 12/28/17 23:00 12/29/17 00:00 Temperature 98.3 F Pulse Rate 92 H 85 82 Respiratory Rate 18 Blood Pressure 139/74 Pulse Oximetry 94 L 12/29/17 01:00 12/29/17 02:00 12/29/17 03:00 Temperature Pulse Rate 76 72 73 Respiratory Rate Blood Pressure Pulse Oximetry 12/29/17 04:00 12/29/17 05:00 12/29/17 06:00 Temperature 98.2 F Pulse Rate 92 H 69 71 Respiratory Rate 18 Blood Pressure 154/91 H Pulse Oximetry 93 L 12/29/17 07:00 12/29/17 08:00 12/29/17 09:00 Temperature 97.6 F Pulse Rate 70 86 90 Respiratory Rate 18 Blood Pressure 156/98 H Pulse Oximetry 92 L 12/29/17 10:00 12/29/17 11:00 12/29/17 12:00 Temperature 98.2 F Pulse Rate 96 H 84 95 H Respiratory Rate 20 Blood Pressure 152/91 H Pulse Oximetry 92 L 12/29/17 13:00 12/29/17 14:00 12/29/17 15:00 Temperature Pulse Rate 93 H 100 H 87 Respiratory Rate Blood Pressure Pulse Oximetry 12/29/17 16:00 12/29/17 16:51 12/29/17 18:00 Temperature 97.6 F Pulse Rate 85 89 90 Respiratory Rate 18 Blood Pressure 149/93 H Pulse Oximetry 95 Intake & Output 12/29/17 12/29/17 12/30/17 06:59 18:59 06:59 Intake Total 820 / 820 1060 / 1060 Output Total 425 / 425 350 / 350 Balance 395 / 395 710 / 710 Weight 92 kg Intake: IV 100 / 100 100 / 100 Rocephin Inj 1,000 MG In NS Inj 100 / 100 100 / 100 100 ML @ 200 mls/hr IV.SIG Q24H [facility] Rx#:[id number] Oral 720 / 720 960 / 960 Output: Urine 425 / 425 350 / 350 Other: # Voids 2 Date of Last Bowel Movement 12/29/17 12/29/17 # Bowel Movements 1 Narrative: Subjective SoB improved. With minimal bloody sputum today No n/v/d/c No chest pain or palpitations. Wheezing improving wih nebs. no n/v/d/c. Physical exam GENERAL: Pleasant 67 yo F, well nourished well developed patient appears sob however improved. CARDIOVASCULAR: Tachycardic, regular rhythm without murmurs. RESPIRATORY: Decreased breath sounds bilaterally. Bibasilar crackles. No wheezing. GASTROINTESTINAL: Abdomen soft, nondistended, nontender. Bowel sounds normal. MUSCULOSKELETAL: BL lower extremity edema improving. NEURO/PSYCH: Awake, alert, and oriented. Anxious.Cranial nerves grossly normal. Grossly normal motor and sensory function Assessment and Plan Respiratory distress/pneumonia Impression: Shortness of breath in association with infiltrate on imaging. [facility] COPD CXR- L basilar density could be atelectasis or infiltrate Chest CT- Segmental consolidation medial left lower lung, Mildly prominent middle mediastinal lymph nodes, upper lobe emphysema, 2cm left thyroid nodule VQ- low probability. Abnormalities including emphysema and central deposition CBC- WBC 44.1K, neutrophil predominant. ABG performed on BIPAP with pH 7.44, CO2 33 om admission. Weaned off bipap. -Continue to monitor O2/VS -doesn't need BIPAP at this time. Satting well on NC O2 based on respiration -Plan for bronch 12/28/[address] Sood -Treat for CAP -Continue Azithromycin/Rocephin -Will treat for COPD exacerbation -Continue to taper as tolerated Solumedrol 40mg IV q8hrs -Continue Duonebs scheduled, PRN Albuterol -Will check urine Legionella/strep pneumo/sputum culture neg so far -Will rule out TB for CT findings -MTB RIF -Pulmonology consulted (need for home O2, needed BIPAP on admission, patient does not have Pulm f/u in [facility]) - Encourage IS. 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 Unknown baseline Cr; presume some PARTH with recent illness -Will give IV NS bolus x1 DC NS as patient with LE edema. Now with fluid overload. Give one dose of lasix -Will trend Cr HTN Impression: Mild hypertension in ED -Will give PRN hydralazine due to renal function Anxiety -Will continue home Wellbutrin - on xanax prn DVT PPX -BID heparin Code Status: Full code seen by pulmonology, weaned to [place] O2. Continue Rocephin/Azithromycin, Symbicort added Encouraged IS and EZPAP S/p bronch 12/28/[address] Sood Discussed with the patient ,nurse. CM also consulted for [place] plan [place] and likely she will needs O2 at [place]. Plan to do O2 walking test at [place] Results - Labs CBC & Chem 7: 12/28/17 05:14 12/28/17 05:14 Microbiology 12/28/17 12:05 Bronchial - Bronchial Gram Stain - Final 12/28/17 12:05 Bronchial - Bronchial Bronchial Culture - Preliminary gram negative rods 12/28/17 12:10 Bronchial - Right Lower Lobe Gram Stain - Final 12/28/17 12:10 Bronchial - Right Lower Lobe Bronchial Culture - Preliminary No growth in 24 hours 12/24/17 17:04 Blood - Peripheral Aerobic Blood Culture - Final No growth in 5 days 12/24/17 17:04 Blood - Peripheral Anaerobic Blood Culture - Final No growth in 5 days 12/24/17 17:04 Blood - Peripheral Aerobic Blood Culture - Final No growth in 5 days 12/24/17 17:04 Blood - Peripheral Anaerobic Blood Culture - Final No growth in 5 days 12/28/17 12:05 Bronchial Washings - Bronchial Fungal Smear - Final No fungal elements seen 12/28/17 12:10 Bronchial Washings - Right Lower Lobe Fungal Smear - Final No fungal elements seen
[2017-12-30] MEDS: Dextrose 5%/NaCl 0.45% Inj 1,000 ML IV.CONT SCH (02:07)
[2017-12-30 06:24] LABS: Baso % (Auto) 0.1 % (0.0-2.0); Eos # (Auto) 0.2 th/mm3 (0.0-0.4); Eos % (Auto) 0.8 % (0.0-4.0); Hematocrit 46.6 % (35.0-46.0); Hemoglobin 15.3 gm/dL (11.6-15.3); Lymph # (Auto) 1.2 th/mm3 (1.0-4.8); Lymph % (Auto) 5.1 % (9.0-44.0); Mean Corpuscular HGB Conc 32.8 % (32.0-36.0); Mean Corpuscular Hemoglobin 27.2 pg (27.0-34.0); Mean Corpuscular Volume 82.9 fL (80.0-100.0); Mean Platelet Volume 9.1 fL (7.0-11.0); Mono # (Auto) 0.6 th/mm3 (0.0-0.9); Mono % (Auto) 2.7 % (0.0-8.0); Neut # (Auto) 21.2 th/mm3 (1.8-7.7); Neut % (Auto) 91.3 % (16.0-70.0); Platelet Count 414 th/mm3 (150-450); Red Blood Count 5.62 mil/mm3 (4.00-5.30); Red Cell Distribution Width 16.6 % (11.6-17.2); White Blood Count 23.2 th/mm3 (4.0-11.0)
[2017-12-30 06:53] LABS: Calcium 8.7 mg/dL (8.5-10.1); Carbon Dioxide 29.7 meq/L (21.0-32.0)
[2017-12-30 07:52] LABS: Lymphocytes 8 % (9-44); Metamyelocytes 2 % (0-1); Monocytes 1 % (0-8); Myelocytes 2 % (0-0)
[2017-12-30 07:53] LABS: Platelet Estimate Normal (Normal); Platelet Morphology Normal (Normal); RBC Morphology Normal (Normal)
[2017-12-30] MEDS: MethylPREDNISolone Sod Succinate Inj 40 MG/ML Vial IV.PUSH SCH (08:21)
[2017-12-30] MEDS: buPROPion 150 MG 12 HR Tablet PO SCH ×2 (08:21→21:23)
[2017-12-30] MEDS: Senna/Docusate Sodium 8.6/50 MG Tablet PO SCH ×2 (08:22→21:23)
[2017-12-30] MEDS: Azithromycin 250 MG Tablet PO SCH (08:22)
[2017-12-30] MEDS: Magnesium Oxide 400 MG Tablet PO SCH (08:22)
[2017-12-30] MEDS: dilTIAZem 30 MG Tablet PO SCH ×4 (08:23→21:23)
[2017-12-30] MEDS: Budesonide-Formoterol 160/4.5 MCG 6 GM Inhaler INH SCH ×2 (08:23→21:24)
--- NOTE | 2017-12-30 10:47 | XR ---
EXAM DATE: 12/30/2017 10:36 AM EDT AGE/SEX: 67 years / Female INDICATIONS: . Pneumonia. Patient complains of shortness of breath. CLINICAL DATA: This is the patient's subsequent encounter. Patient reports that signs and symptoms h ave been present for 1 week and indicates a pain score of 0/10. MEDICAL/SURGICAL HISTORY: Chronic obstructive pulmonary disease. . Bronchoscopy a few days ago. COMPARISON: [facility] [place], CHEST 1V SINGLE AP, 12/28/2017. . FINDINGS: PA and lateral views of the chest demonstrate the lungs to be symmetrically aerated without evidence of mass or effusion. There is mild patchy opacity remaining in the left lung base. The cardiomediasti nal contours are unremarkable. Osseous structures are intact. CONCLUSION: 1. Mild patchy opacity remains in the left lung base with no focal consolidation. 2. No new infiltrates. Electronically signed by: John Sanders MD 12/30/2017 10:45 AM EDT
--- NOTE | 2017-12-30 14:50 | P.PN ---
Physical Exam Vital signs: Vital Signs 12/29/17 15:00 12/29/17 16:00 12/29/17 16:51 Temperature 97.6 F Pulse Rate 87 85 89 Respiratory Rate 18 Blood Pressure 149/93 H Pulse Oximetry 95 12/29/17 18:00 12/29/17 19:00 12/29/17 20:00 Temperature 97.8 F Pulse Rate 90 86 104 H Respiratory Rate 20 Blood Pressure 158/97 H Pulse Oximetry 94 L 12/29/17 21:00 12/29/17 22:00 12/29/17 23:00 Temperature Pulse Rate 82 84 76 Respiratory Rate Blood Pressure Pulse Oximetry 12/30/17 00:00 12/30/17 01:00 12/30/17 02:00 Temperature 98.6 F Pulse Rate 78 82 76 Respiratory Rate 20 Blood Pressure 163/102 H Pulse Oximetry 94 L 12/30/17 03:00 12/30/17 04:00 12/30/17 05:00 Temperature 97.7 F Pulse Rate 69 68 92 H Respiratory Rate 18 Blood Pressure 139/96 H Pulse Oximetry 97 12/30/17 06:00 12/30/17 07:00 12/30/17 08:00 Temperature 97.6 F Pulse Rate 74 70 94 H Respiratory Rate 22 Blood Pressure 127/98 H Pulse Oximetry 94 L 12/30/17 09:00 12/30/17 10:00 12/30/17 10:51 Temperature Pulse Rate 83 90 87 Respiratory Rate 19 Blood Pressure Pulse Oximetry 93 L 12/30/17 11:00 12/30/17 12:00 12/30/17 13:00 Temperature 98.0 F Pulse Rate 89 90 103 H Respiratory Rate Blood Pressure 148/92 H Pulse Oximetry 93 L Intake & Output 12/29/17 12/30/17 12/30/17 18:59 06:59 18:59 Intake Total 1060 / 1060 580 / 580 Output Total 350 / 350 400 / 400 Balance 710 / 710 180 / 180 Weight 92.3 kg Intake: IV 100 / 100 100 / 100 Maxipime Inj 2,000 MG In NS Inj 100 / 100 100 ML @ 200 mls/hr IV.SIG Q12H KRISSY Rx#:[id number] Rocephin Inj 1,000 MG In NS Inj 100 / 100 100 ML @ 200 mls/hr IV.SIG Q24H KRISSY Rx#:[id number] Oral 960 / 960 480 / 480 Output: Urine 350 / 350 400 / 400 Other: Date of Last Bowel Movement 12/29/17 12/30/17 12/30/17 # Bowel Movements 1 Narrative: Subjective With shortness of breath especially with ambulation. Feels tired. No n/v/d/c No chest pain or palpitations. Wheezing improving wih nebs. DC IV steroids, switch to p.o. taper prednisone over [address] Lacey pulmonology Physical exam GENERAL: Pleasant 67 yo F, well nourished well developed patient appears sob however improved. CARDIOVASCULAR: Tachycardic, regular rhythm without murmurs. RESPIRATORY: Decreased breath sounds bilaterally. Bibasilar crackles. No wheezing. GASTROINTESTINAL: Abdomen soft, nondistended, nontender. Bowel sounds normal. MUSCULOSKELETAL: BL lower extremity edema improving. NEURO/PSYCH: Awake, alert, and oriented. Anxious.Cranial nerves grossly normal. Grossly normal motor and sensory function Assessment and Plan Respiratory distress/pneumonia Impression: Shortness of breath in association with infiltrate on imaging. PMH COPD CXR- L basilar density could be atelectasis or infiltrate Chest CT- Segmental consolidation medial left lower lung, Mildly prominent middle mediastinal lymph nodes, upper lobe emphysema, 2cm left thyroid nodule VQ- low probability. Abnormalities including emphysema and central deposition CBC- WBC 44.1K, neutrophil predominant. ABG performed on BIPAP with pH 7.44, CO2 33 om admission. Weaned off bipap. -Continue to monitor O2/VS -doesn't need BIPAP at this time. Satting well on [place] O2 based on respiration -Plan for bronch 12/28/[address] Sood -Treat for CAP -Continue Azithromycin/Rocephin -Will treat for COPD exacerbation -Continue to taper as tolerated Solumedrol 40mg IV q8hrs -Continue Duonebs scheduled, PRN Albuterol -Will check urine Legionella/strep pneumo/sputum culture neg so far -Will rule out TB for CT findings -MTB RIF -Pulmonology consulted (need for home O2, needed BIPAP on admission, patient does not have Pulm f/u in [facility]) - Encourage IS. 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 Unknown baseline Cr; presume some PARTH with recent illness -Will give IV NS bolus x1 DC NS as patient with LE edema. Now with fluid overload. Give one dose of lasix -Will trend Cr HTN Impression: Mild hypertension in ED -Will give PRN hydralazine due to renal function Anxiety -Will continue home Wellbutrin - on xanax prn DVT PPX -BID heparin Code Status: Full code seen by pulmonology, weaned to [place] O2. Continue Rocephin/Azithromycin, Symbicort added Encouraged IS and EZPAP S/p bronch 12/28/[address] Sood Discussed with the patient ,nurse. CM also consulted for [place] plan [place] and likely she will needs O2 at DC. Plan to do O2 walking test at DC Results - Labs CBC & Chem 7: 12/30/17 04:35 12/30/17 04:35 Laboratory Results - last 24 hr 12/30/17 12/30/17 04:35 04:35 WBC 23.2 H RBC 5.62 H Hgb 15.3 Hct 46.6 H MCV 82.9 MCH 27.2 MCHC 32.8 RDW 16.6 Plt Count 414 MPV 9.1 Prelim Diff (Auto) Slide review pending Neut % (Auto) 91.3 H Lymph % (Auto) 5.1 L [place] % (Auto) 2.7 Eos % (Auto) 0.8 Baso % (Auto) 0.1 Neut # (Auto) 21.2 H Lymph # (Auto) 1.2 [place] # (Auto) 0.6 Eos # (Auto) 0.2 Baso # (Auto) 0.0 WBC Differential Manual diff final Seg Neuts % (Manual) 84 H Band Neuts % (Manual) 3 Lymphocytes % (Manual) 8 L Monocytes % (Manual) 1 Metamyelocytes % (Man) 2 H Myelocytes % (Man) 2 H Abs Neuts (Manual) 21.1 H Differential Comment . Platelet Estimate Normal Platelet Morphology Normal RBC Morphology Normal Sodium 143 Potassium 5.0 Chloride 105 Carbon Dioxide 29.7 Anion Gap 8 BUN 39 H Creatinine 1.30 H Estimated GFR 41 L Random Glucose 153 H Calcium 8.7 Microbiology 12/28/17 12:10 Bronchial Washings - Right Lower Lobe Acid Fast Bacilli Smear - Final No acid fast bacilli seen 12/28/17 12:05 Bronchial Washings - Bronchial Acid Fast Bacilli Smear - Final No acid fast bacilli seen 12/28/17 12:10 Bronchial - Right Lower Lobe Gram Stain - Final 12/28/17 12:10 Bronchial - Right Lower Lobe Bronchial Culture - Final No growth in 48 hours 12/28/17 12:05 Bronchial - Bronchial Gram Stain - Final 12/28/17 12:05 Bronchial - Bronchial Bronchial Culture - Final Pseudomonas aeruginosa 12/24/17 17:04 Blood - Peripheral Aerobic Blood Culture - Final No growth in 5 days 12/24/17 17:04 Blood - Peripheral Anaerobic Blood Culture - Final No growth in 5 days 12/24/17 17:04 Blood - Peripheral Aerobic Blood Culture - Final No growth in 5 days 12/24/17 17:04 Blood - Peripheral Anaerobic Blood Culture - Final No growth in 5 days - Imaging Impressions Chest X-Ray 12/30/17 00:00 CONCLUSION: 1. Mild patchy opacity remains in the left lung base with no focal consolidation. 2. No new infiltrates.
[2017-12-30] MEDS: hydrALAZINE 10 MG Tablet PO PRN (15:46)
--- NOTE | 2017-12-30 18:21 | P.PN ---
Subjective Interval history: Has improved. on o2 2L. No chest pain. Coughs up clear sputum. Has Pseudomonas on Bronch culture Physical Exam Vital signs: Vital Signs 12/29/17 19:00 12/29/17 20:00 12/29/17 21:00 Temperature 97.8 F Pulse Rate 86 104 H 82 Respiratory Rate 20 Blood Pressure 158/97 H Pulse Oximetry 94 L 12/29/17 22:00 12/29/17 23:00 12/30/17 00:00 Temperature 98.6 F Pulse Rate 84 76 78 Respiratory Rate 20 Blood Pressure 163/102 H Pulse Oximetry 94 L 12/30/17 01:00 12/30/17 02:00 12/30/17 03:00 Temperature Pulse Rate 82 76 69 Respiratory Rate Blood Pressure Pulse Oximetry 12/30/17 04:00 12/30/17 05:00 12/30/17 06:00 Temperature 97.7 F Pulse Rate 68 92 H 74 Respiratory Rate 18 Blood Pressure 139/96 H Pulse Oximetry 97 12/30/17 07:00 12/30/17 08:00 12/30/17 09:00 Temperature 97.6 F Pulse Rate 70 94 H 83 Respiratory Rate 22 Blood Pressure 127/98 H Pulse Oximetry 94 L 12/30/17 10:00 12/30/17 10:51 12/30/17 11:00 Temperature Pulse Rate 90 87 89 Respiratory Rate 19 Blood Pressure Pulse Oximetry 93 L 12/30/17 12:00 12/30/17 13:00 12/30/17 14:00 Temperature 98.0 F Pulse Rate 90 103 H 103 H Respiratory Rate Blood Pressure 148/92 H Pulse Oximetry 93 L 12/30/17 15:00 12/30/17 16:00 12/30/17 17:00 Temperature 98 F Pulse Rate 91 H 95 H 85 Respiratory Rate 16 Blood Pressure 160/89 H Pulse Oximetry 12/30/17 18:00 Temperature Pulse Rate 86 Respiratory Rate Blood Pressure Pulse Oximetry Intake & Output 12/29/17 12/30/17 12/30/17 18:59 06:59 18:59 Intake Total 1060 / 1060 580 / 580 800 / 800 Output Total 350 / 350 400 / 400 800 / 800 Balance 710 / 710 180 / 180 0 / 0 Weight 92.3 kg Intake: IV 100 / 100 100 / 100 100 / 100 Maxipime Inj 2,000 MG In NS Inj 100 / 100 100 / 100 100 ML @ 200 mls/hr IV.SIG Q12H KRISSY Rx#:[id number] Rocephin Inj 1,000 MG In NS Inj 100 / 100 100 ML @ 200 mls/hr IV.SIG Q24H KRISSY Rx#:[id number] Oral 960 / 960 480 / 480 700 / 700 Output: Urine 350 / 350 400 / 400 800 / 800 Other: Date of Last Bowel Movement 12/29/17 12/30/17 12/30/17 # Bowel Movements 1 Narrative: Subjective SoB improved. With no bloody sputum today No n/v/d/c No chest pain or palpitations. Wheezing improving wih nebs. Physical exam GENERAL: Pleasant 67 yo F, well nourished well developed patient in no distress CARDIOVASCULAR: S1 S2 regular rhythm without murmurs. RESPIRATORY: Decreased breath sounds bilaterally. Occ Bibasilar crackles. No wheezing. GASTROINTESTINAL: Abdomen soft, nondistended, nontender. Bowel sounds normal. MUSCULOSKELETAL: BL lower extremity edema improving. NEURO/PSYCH: Awake, alert, and oriented. Anxious.Cranial nerves grossly normal. Grossly normal motor and sensory function Results - Labs CBC & Chem 7: 12/30/17 04:35 12/30/17 04:35 Laboratory Results - last 24 hr 12/30/17 12/30/17 04:35 04:35 WBC 23.2 H RBC 5.62 H Hgb 15.3 Hct 46.6 H MCV 82.9 MCH 27.2 MCHC 32.8 RDW 16.6 Plt Count 414 MPV 9.1 Prelim Diff (Auto) Slide review pending Neut % (Auto) 91.3 H Lymph % (Auto) 5.1 L [place] % (Auto) 2.7 Eos % (Auto) 0.8 Baso % (Auto) 0.1 Neut # (Auto) 21.2 H Lymph # (Auto) 1.2 [place] # (Auto) 0.6 Eos # (Auto) 0.2 Baso # (Auto) 0.0 WBC Differential Manual diff final Seg Neuts % (Manual) 84 H Band Neuts % (Manual) 3 Lymphocytes % (Manual) 8 L Monocytes % (Manual) 1 Metamyelocytes % (Man) 2 H Myelocytes % (Man) 2 H Abs Neuts (Manual) 21.1 H Differential Comment . Platelet Estimate Normal Platelet Morphology Normal RBC Morphology Normal Sodium 143 Potassium 5.0 Chloride 105 Carbon Dioxide 29.7 Anion Gap 8 BUN 39 H Creatinine 1.30 H Estimated GFR 41 L Random Glucose 153 H Calcium 8.7 Microbiology 12/28/17 12:10 Bronchial Washings - Right Lower Lobe Acid Fast Bacilli Smear - Final No acid fast bacilli seen 12/28/17 12:05 Bronchial Washings - Bronchial Acid Fast Bacilli Smear - Final No acid fast bacilli seen 12/28/17 12:10 Bronchial - Right Lower Lobe Gram Stain - Final 12/28/17 12:10 Bronchial - Right Lower Lobe Bronchial Culture - Final No growth in 48 hours 12/28/17 12:05 Bronchial - Bronchial Gram Stain - Final 12/28/17 12:05 Bronchial - Bronchial Bronchial Culture - Final Pseudomonas aeruginosa - Imaging Impressions Chest X-Ray 12/30/17 00:00 CONCLUSION: 1. Mild patchy opacity remains in the left lung base with no focal consolidation. 2. No new infiltrates. Assessment and Plan - Assessment (1) Pneumonia Code(s): J18.9 - Pneumonia, unspecified organism Status: Acute (2) Sleep apnea syndrome Code(s): G47.30 - Sleep apnea, unspecified Status: Acute (3) Acute exacerbation of chronic obstructive airways disease Code(s): J44.1 - Chronic obstructive pulmonary disease with (acute) exacerbation Status: Acute (4) Acute hypoxemic respiratory failure Code(s): J96.01 - Acute respiratory failure with hypoxia Status: Acute (5) Renal failure Code(s): N19 - Unspecified kidney failure Status: Acute (6) HTN (hypertension) Code(s): I10 - Essential (primary) hypertension Status: Acute (7) CKD (chronic kidney disease) Code(s): N18.9 - Chronic kidney disease, unspecified Status: Acute (8) Anxiety Code(s): F41.9 - Anxiety disorder, unspecified Status: Acute (9) COPD (chronic obstructive pulmonary disease) Code(s): J44.9 - Chronic obstructive pulmonary disease, unspecified Status: Acute - Plan 1. Cefipime 2 G IV BID 2. Arrange home O2 3 l 3. Cont Duonebs qid. 4. O2 at 3 L N/C 5. Symbicort 160/4.5 mcg , 2 puffs BID 6. Add Levaquin 500 mg daily 7. D/C Solumedrol 8. Add Prednisone 20 mg BID and taper over 3 weeks (5) Renal failure Qualifiers: Renal failure chronicity: unspecified chronicity Qualified Code(s): N19 - Unspecified kidney failure
[2017-12-30] MEDS: predniSONE 20 MG Tablet PO SCH (21:22)
[2017-12-31] MEDS: Dextrose 5%/NaCl 0.45% Inj 1,000 ML IV.CONT SCH (01:06)
[2017-12-31] MEDS: buPROPion 150 MG 12 HR Tablet PO SCH (08:41)
[2017-12-31] MEDS: predniSONE 20 MG Tablet PO SCH (08:42)
[2017-12-31] MEDS: Magnesium Oxide 400 MG Tablet PO SCH (08:42)
[2017-12-31] MEDS: Senna/Docusate Sodium 8.6/50 MG Tablet PO SCH (08:42)
[2017-12-31] MEDS: dilTIAZem 30 MG Tablet PO SCH (08:42)
[2017-12-31] MEDS: Budesonide-Formoterol 160/4.5 MCG 6 GM Inhaler INH SCH (08:43)
[2017-12-31] MEDS ORDERED: levoFLOXacin 500 MG Tablet PO SCH (09:00)
--- NOTE | 2017-12-31 09:53 | P.PN ---
Physical Exam Vital signs: Vital Signs 12/30/17 10:00 12/30/17 10:51 12/30/17 11:00 Temperature Pulse Rate 90 87 89 Respiratory Rate 19 Blood Pressure Pulse Oximetry 93 L 12/30/17 12:00 12/30/17 13:00 12/30/17 14:00 Temperature 98.0 F Pulse Rate 90 103 H 103 H Respiratory Rate Blood Pressure 148/92 H Pulse Oximetry 93 L 12/30/17 15:00 12/30/17 16:00 12/30/17 17:00 Temperature 98 F Pulse Rate 91 H 95 H 85 Respiratory Rate 16 Blood Pressure 160/89 H Pulse Oximetry 12/30/17 18:00 12/30/17 19:00 12/30/17 20:00 Temperature 98.0 F Pulse Rate 86 111 H 82 Respiratory Rate 18 Blood Pressure 140/94 H Pulse Oximetry 92 L 12/30/17 21:00 12/30/17 21:01 12/30/17 21:04 Temperature Pulse Rate 88 87 Respiratory Rate 16 Blood Pressure Pulse Oximetry 93 L 12/30/17 22:00 12/30/17 23:00 12/31/17 00:00 Temperature 97.8 F Pulse Rate 82 87 80 Respiratory Rate 20 Blood Pressure 140/90 Pulse Oximetry 94 L 12/31/17 01:00 12/31/17 02:00 12/31/17 03:00 Temperature Pulse Rate 84 88 83 Respiratory Rate Blood Pressure Pulse Oximetry 12/31/17 04:00 12/31/17 05:00 12/31/17 06:00 Temperature 98.1 F Pulse Rate 74 80 82 Respiratory Rate 22 Blood Pressure 165/99 H Pulse Oximetry 96 12/31/17 07:00 12/31/17 08:00 12/31/17 09:00 Temperature 98.0 F Pulse Rate 86 88 82 Respiratory Rate 22 Blood Pressure 130/84 Pulse Oximetry 94 L Intake & Output 12/30/17 12/31/17 12/31/17 18:59 06:59 18:59 Intake Total 800 / 800 580 / 580 1000 / 1000 Output Total 800 / 800 950 / 950 Balance 0 / 0 -370 / -370 1000 / 1000 Weight 92 kg Intake: IV 100 / 100 100 / 100 1000 / 1000 D5W/1/2 NS Inj 1,000 ML @ 30 1000 / 1000 mls/hr IV.CONT .Q24H KRISSY Rx#: [id number] Maxipime Inj 2,000 MG In NS Inj 100 / 100 100 / 100 100 ML @ 200 mls/hr IV.SIG Q12H KRISSY Rx#:[id number] Oral 700 / 700 480 / 480 Output: Urine 800 / 800 950 / 950 Other: Date of Last Bowel Movement 12/30/17 12/30/17 12/30/17 Narrative: Subjective She is in the chair eating breakfast. No more wheezing shortness of breath. She is weak. Plan to discharge to [facility] today. Patient denies any fever or cough. Physical exam GENERAL: Pleasant 67 yo F, well nourished well developed patient appears sob however improved. CARDIOVASCULAR: Tachycardic, regular rhythm without murmurs. RESPIRATORY: Decreased breath sounds bilaterally. Bibasilar crackles. No wheezing. GASTROINTESTINAL: Abdomen soft, nondistended, nontender. Bowel sounds normal. MUSCULOSKELETAL: BL lower extremity edema improving. NEURO/PSYCH: Awake, alert, and oriented. Anxious.Cranial nerves grossly normal. Grossly normal motor and sensory function Assessment and Plan Respiratory distress/pneumonia Impression: Shortness of breath in association with infiltrate on imaging. [facility] COPD CXR- L basilar density could be atelectasis or infiltrate Chest CT- Segmental consolidation medial left lower lung, Mildly prominent middle mediastinal lymph nodes, upper lobe emphysema, 2cm left thyroid nodule VQ- low probability. Abnormalities including emphysema and central deposition CBC- WBC 44.1K, neutrophil predominant. ABG performed on BIPAP with pH 7.44, CO2 33 om admission. Weaned off bipap. -Continue to monitor O2/VS -doesn't need BIPAP at this time. Satting well on [place] O2 based on respiration -Plan for bronch 12/28/[address] Sood -Treat for CAP -Continue Azithromycin/Rocephin -Will treat for COPD exacerbation -Continue to taper as tolerated Solumedrol 40mg IV q8hrs -Continue Duonebs scheduled, PRN Albuterol -Will check urine Legionella/strep pneumo/sputum culture neg so far -Will rule out TB for CT findings -MTB RIF -Pulmonology consulted (need for home O2, needed BIPAP on admission, patient does not have Pulm f/u in [facility]) - Encourage IS. 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 Unknown baseline Cr; presume some PARTH with recent illness -Will give IV NS bolus x1 DC NS as patient with LE edema. Now with fluid overload. Give one dose of lasix -Will trend Cr HTN Impression: Mild hypertension in ED -Will give PRN hydralazine due to renal function Anxiety -Will continue home Wellbutrin - on xanax prn DVT PPX -BID heparin Code Status: Full code seen by pulmonology, weaned to [place] O2. Continue Rocephin/Azithromycin, Symbicort added Encouraged IS and EZPAP S/p bronch 12/28/[address] Sood Discussed with the patient ,nurse. CM also consulted for [place] plan [place] and likely she will needs O2 at DC. Plan to do O2 walking test at DC Plan to discharge to rehab. Patient is approved for [facility]. Discharge to inpatient [facility] in fairly stable condition to follow-up with PCP and consultants. Results - Labs CBC & Chem 7: 12/30/17 04:35 12/30/17 04:35 Microbiology 12/28/17 12:10 Bronchial Washings - Right Lower Lobe Acid Fast Bacilli Smear - Final No acid fast bacilli seen 12/28/17 12:05 Bronchial Washings - Bronchial Acid Fast Bacilli Smear - Final No acid fast bacilli seen 12/28/17 12:10 Bronchial - Right Lower Lobe Gram Stain - Final 12/28/17 12:10 Bronchial - Right Lower Lobe Bronchial Culture - Final No growth in 48 hours 12/28/17 12:05 Bronchial - Bronchial Gram Stain - Final 12/28/17 12:05 Bronchial - Bronchial Bronchial Culture - Final Pseudomonas aeruginosa - Imaging Impressions Chest X-Ray 12/30/17 00:00 CONCLUSION: 1. Mild patchy opacity remains in the left lung base with no focal consolidation. 2. No new infiltrates.
--- NOTE | 2017-12-31 10:38 | P.PNPL ---
Subjective Interval history: Patient is 67 yo sitting up in chair in NAD. Denies any hemoptysis. Afebrile. Physical Exam Vital signs: Vital Signs 12/30/17 10:51 12/30/17 11:00 12/30/17 12:00 Temperature 98.0 F Pulse Rate 87 89 90 Respiratory Rate 19 Blood Pressure 148/92 H Pulse Oximetry 93 L 93 L 12/30/17 13:00 12/30/17 14:00 12/30/17 15:00 Temperature Pulse Rate 103 H 103 H 91 H Respiratory Rate Blood Pressure Pulse Oximetry 12/30/17 16:00 12/30/17 17:00 12/30/17 18:00 Temperature 98 F Pulse Rate 95 H 85 86 Respiratory Rate 16 Blood Pressure 160/89 H Pulse Oximetry 12/30/17 19:00 12/30/17 20:00 12/30/17 21:00 Temperature 98.0 F Pulse Rate 111 H 82 88 Respiratory Rate 18 Blood Pressure 140/94 H Pulse Oximetry 92 L 12/30/17 21:01 12/30/17 21:04 12/30/17 22:00 Temperature Pulse Rate 87 82 Respiratory Rate 16 Blood Pressure Pulse Oximetry 93 L 12/30/17 23:00 12/31/17 00:00 12/31/17 01:00 Temperature 97.8 F Pulse Rate 87 80 84 Respiratory Rate 20 Blood Pressure 140/90 Pulse Oximetry 94 L 12/31/17 02:00 12/31/17 03:00 12/31/17 04:00 Temperature 98.1 F Pulse Rate 88 83 74 Respiratory Rate 22 Blood Pressure 165/99 H Pulse Oximetry 96 12/31/17 05:00 12/31/17 06:00 12/31/17 07:00 Temperature Pulse Rate 80 82 86 Respiratory Rate Blood Pressure Pulse Oximetry 12/31/17 08:00 12/31/17 09:00 12/31/17 10:00 Temperature 98.0 F Pulse Rate 88 82 89 Respiratory Rate 22 Blood Pressure 130/84 Pulse Oximetry 94 L Intake & Output 12/30/17 12/31/17 12/31/17 18:59 06:59 18:59 Intake Total 800 / 800 580 / 580 1000 / 1000 Output Total 800 / 800 950 / 950 Balance 0 / 0 -370 / -370 1000 / 1000 Weight 92 kg Intake: IV 100 / 100 100 / 100 1000 / 1000 D5W/1/2 NS Inj 1,000 ML @ 30 1000 / 1000 mls/hr IV.CONT .Q24H KRISSY Rx#: [id number] Maxipime Inj 2,000 MG In NS Inj 100 / 100 100 / 100 100 ML @ 200 mls/hr IV.SIG Q12H KRISSY Rx#:[id number] Oral 700 / 700 480 / 480 Output: Urine 800 / 800 950 / 950 Other: Date of Last Bowel Movement 12/30/17 12/30/17 12/30/17 - Constitutional no acute distress - Routine HEENT Exam Head: Present: normocephalic, atraumatic Eye: Present: EOMI, PERRL, conjunctivae pink ENT: Present: mucous membranes moist - Routine Neck Exam Present: supple, full ROM, trachea midline - Routine Respiratory Exam Comments: B/l equal air entry - Detailed Respiratory Exam bilateral Present: clear to auscultation - Routine Cardiovascular Exam Present: RRR, S1, S2 - Routine Abdominal Exam Present: soft, normoactive bowel sounds - Routine Extremities Exam Present: full ROM - Routine Skin Exam Present: intact - Routine Neurological Exam Present: alert, oriented X3, CN II-XII intact - Routine Psychiatric Exam Present: normal affect Assessment and Plan - Plan 1)Resp Insuff 2)s/p hemoptysis 3)Pseudomonas pneumonia 4)COPD- On 2L nocturnal home oxygen 5)EVA 6) Leukocytosis 7)Acute on CKD Plan Continue with oxygen keep sats >92% Bronchodilators ( DuoNeb, Symbicort) Continue with Prednisone 20mg BID- taper dose s/p Bronch with BAL 12/28: + Pseudomonas Continue with abx ( Cefepime, Levaquin) Monitor for signs of infections ( fever , WBC) GI/DVT prophylaxis per primary team Continue treatment plan
[2017-12-31 12:07] VITALS: BP 135/89; RESP 16; TEMP 97.7; O2SAT 96
[2017-12-31 12:08] VITALS: PULSE 96
--- NOTE | 2017-12-31 18:33 | P.DS ---
Date of admission: 12/24/17 14:31 Primary care physician: PROVIDER NON STAFF Brief History from admission: History somewhat limited due to shortness of breath on BIPAP Mrs. Leon is a 67 yo F with PMH COPD, HTN, renal disease, anxiety/depression who presents to [place] ED for complaints of shortness of breath and cough. Patient states that she has been feeling worsening shortness of breath and increasing sputum production for the past 2-3 days; she at first thought her symptoms would improve but they worsened so she sought evaluation. Patient reports wheezing; she denies associated fevers. Patient reports being diagnosed with COPD ~5 years prior; she currently uses 2L O2 at night and takes daily Advair. patient sees a Live Truck Technician in [place]. Patient has generally been doing ok in terms of her respiratory function; she last had pneumonia 06/2017. Patient states that she has not been drinking as much due to her shortness of breath and has been urinating less. She sees a Lending Manager in [place] but denies any need for dialysis. Patient denies recent sick contacts. She denies recent exposure to incarcerated persons or recent immigrants; no concern for TB. Patient reports loose stools recently. No headaches, vision changes, extremity numbness/tingling, or other complaints. Interval: Patient hypoxic in ED in respiratory distress, tachycardic, and tachypneic. Initial pulse oximetry in mid 80's; due to continued distress patient placed on BIPAP. ABG performed on BIPAP with pH 7.44, CO2 33. Initial labs- leukocytosis; WBC 44K. Chemistry with Cr 3.06. CXR suggestive of L basilar infiltrate or atelectasis, CT imaging suggestive of segmented consolidation with lymphadenopathy. VQ not suggestive of PE. Patient admitted for treatment of respiratory distress/pneumonia; placed on TB precautions for CT imaging findings. DS: Diagnosis - Discharge Diagnosis (1) Acute exacerbation of chronic obstructive airways disease Status: Acute (2) Acute hypoxemic respiratory failure Status: Acute (3) Anxiety Status: Acute (4) CKD (chronic kidney disease) Status: Acute (5) COPD (chronic obstructive pulmonary disease) Status: Acute (6) Impaired mobility and activities of daily living Status: Acute (7) Pneumonia Status: Acute (8) Renal failure Status: Acute DS: Medications - Discharge Medications Prescriptions: budesonide-formoterol [Symbicort] 2 puff INH BID #30 g diltiazem HCl 30 mg PO QID #120 tab levofloxacin 500 mg PO DAILY #7 tab prednisone 5 mg PO PER PKG DIR #40 tab DS: Summary Hospital Course: Physical exam GENERAL: Pleasant 67 yo F, well nourished well developed patient appears sob however improved. CARDIOVASCULAR: Tachycardic, regular rhythm without murmurs. RESPIRATORY: Decreased breath sounds bilaterally. Bibasilar crackles. No wheezing. GASTROINTESTINAL: Abdomen soft, nondistended, nontender. Bowel sounds normal. MUSCULOSKELETAL: BL lower extremity edema improving. NEURO/PSYCH: Awake, alert, and oriented. Anxious.Cranial nerves grossly normal. Grossly normal motor and sensory function Assessment and Plan Respiratory distress/pneumonia Impression: Shortness of breath in association with infiltrate on imaging. PMH COPD CXR- L basilar density could be atelectasis or infiltrate Chest CT- Segmental consolidation medial left lower lung, Mildly prominent middle mediastinal lymph nodes, upper lobe emphysema, 2cm left thyroid nodule VQ- low probability. Abnormalities including emphysema and central deposition CBC- WBC 44.1K, neutrophil predominant. ABG performed on BIPAP with pH 7.44, CO2 33 om admission. Weaned off bipap. -Continue to monitor O2/VS -doesn't need BIPAP at this time. Satting well on NC O2 based on respiration -Plan for bronch 12/28/[address] Sood -Treat for CAP -Continue Azithromycin/Rocephin -Will treat for COPD exacerbation -Continue to taper as tolerated Solumedrol 40mg IV q8hrs -Continue Duonebs scheduled, PRN Albuterol -Will check urine Legionella/strep pneumo/sputum culture neg so far -Will rule out TB for CT findings -MTB RIF -Pulmonology consulted (need for home O2, needed BIPAP on admission, patient does not have Pulm f/u in [facility]) - Encourage IS. 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 Unknown baseline Cr; presume some PARTH with recent illness -Will give IV NS bolus x1 DC NS as patient with LE edema. Now with fluid overload. Give one dose of lasix -Will trend Cr HTN Impression: Mild hypertension in ED -Will give PRN hydralazine due to renal function Anxiety -Will continue home Wellbutrin - on xanax prn DVT PPX -BID heparin Code Status: Full code seen by pulmonology, weaned to NC O2. Continue Rocephin/Azithromycin, Symbicort added Encouraged IS and EZPAP S/p bronch 12/28/[address] Sood Discussed with the patient ,nurse. CM also consulted for DC plan [place] and likely she will needs O2 at DC. Plan to do O2 walking test at DC Plan to discharge to rehab. Patient is approved for [facility] rehab. [facility] to follow-up with PCP and consultants. - Time Spent with Patient Total time spent providing and/or coordinating discharge services: Greater than 30 minutes Exam Vital signs: Vital Signs 12/30/17 19:00 12/30/17 20:00 12/30/17 21:00 Temperature 98.0 F Pulse Rate 111 H 82 88 Respiratory Rate 18 Blood Pressure 140/94 H Pulse Oximetry 92 L 12/30/17 21:01 12/30/17 21:04 12/30/17 22:00 Temperature Pulse Rate 87 82 Respiratory Rate 16 Blood Pressure Pulse Oximetry 93 L 12/30/17 23:00 12/31/17 00:00 12/31/17 01:00 Temperature 97.8 F Pulse Rate 87 80 84 Respiratory Rate 20 Blood Pressure 140/90 Pulse Oximetry 94 L 12/31/17 02:00 12/31/17 03:00 12/31/17 04:00 Temperature 98.1 F Pulse Rate 88 83 74 Respiratory Rate 22 Blood Pressure 165/99 H Pulse Oximetry 96 12/31/17 05:00 12/31/17 06:00 12/31/17 07:00 Temperature Pulse Rate 80 82 86 Respiratory Rate Blood Pressure Pulse Oximetry 12/31/17 08:00 12/31/17 09:00 12/31/17 09:15 Temperature 98.0 F Pulse Rate 88 82 Respiratory Rate 22 Blood Pressure 130/84 Pulse Oximetry 94 L 95 12/31/17 10:00 12/31/17 11:00 12/31/17 12:00 Temperature 97.7 F Pulse Rate 89 97 H 96 H Respiratory Rate 16 Blood Pressure 135/89 Pulse Oximetry 96 Intake & Output 12/30/17 12/31/17 12/31/17 18:59 06:59 18:59 Intake Total 800 / 800 580 / 580 1100 / 1100 Output Total 800 / 800 950 / 950 Balance 0 / 0 -370 / -370 1100 / 1100 Weight 92 kg Intake: IV 100 / 100 100 / 100 1100 / 1100 D5W/1/2 NS Inj 1,000 ML @ 30 1000 / 1000 mls/hr IV.CONT .Q24H KRISSY Rx#: [id number] Maxipime Inj 2,000 MG In NS Inj 100 / 100 100 / 100 100 / 100 100 ML @ 200 mls/hr IV.SIG Q12H KRISSY Rx#:[id number] Oral 700 / 700 480 / 480 Output: Urine 800 / 800 950 / 950 Other: Date of Last Bowel Movement 12/30/17 12/30/17 12/30/17 Results Procedures completed during hospitalization: Bronchoscopy - Impressions ITS Impressions Chest CT 12/24/17 12:24 CONCLUSION: 1. Segmental consolidation medial left lower lung. 2. Mildly prominent middle mediastinal lymph nodes. 3. Upper lobe emphysema. 4. 2 cm left thyroid nodule. Pulmonary Perfusion Imaging 12/24/17 12:25 CONCLUSION: 1. Low probability pulmonary embolism. 2. Ventilatory abnormalities including central deposition and upper lobe emphysema. Chest X-Ray 12/30/17 00:00 CONCLUSION: 1. Mild patchy opacity remains in the left lung base with no focal consolidation. 2. No new infiltrates. Discharge Plan - Discharge Disposition Patient Disposition: [facility] Re[facility] Inpatient - Discharge Condition Condition: Fair - Discharge Order Discharge Orders: Discharge Order (Routine); Ordered 12/31/17 Ordered By: Domonique Lorenzana - Discharge Details Anticipated Discharge Date: 12/31/17 - Physicians Team Primary Care Provider: NON STAFF,PROVIDER Attending Provider: Domonique Lorenzana Other Providers: Rene Sood MD
== END 2017-12-31 12:58 ==
LOC: NEPE 10:48 → NEDA 14:31 → HCIS 18:50
PROVIDERS: ADMIT Hospitalist; ATTEND Hospitalist